=== PATIENT | male | born 1995 | race Caucasian/White ===

== ENCOUNTER 2020-08-14 11:36 | Emergency (ER) | payer MEDICAID, SELFPAY ==
[2020-08-14 12:22] VITALS: BP 114/71; PULSE 73; RESP 16; TEMP 37.1; O2SAT 100; BMI 28.1
--- NOTE | 2020-08-14 13:42 | ED.URI ---
HPI - URI/Sore Throat General Chief Complaint: Upper Respiratory Symptoms Stated Complaint: SORE THROAT Time Seen by Provider: 08/14/20 12:40 Source: patient Mode of arrival: ambulatory Limitations: no limitations History of Present Illness HPI Narrative: MD elicited complaint: sore throat and nasal congestion Onset (ago): day(s) (2) Consistency: constant Severity: moderate Able to tolerate fluids by mouth: Yes Exacerbating factors: swallowing Relieving factors: nothing Associated symptoms: denies other symptoms Treatments prior to arrival: none Related Data Home Medications Medication Instructions Recorded Confirmed No Known Home Meds 08/14/20 08/14/20 Allergies Allergy/AdvReac Type Severity Reaction Status Date / Time No Known Allergies Allergy Verified 08/14/20 12:31 [No Known Allergies*] Review of Systems Review of Systems: Yes all other systems are reviewed and are negative Constitutional: Constitutional: Reports as per HPI, Denies body ache(s), Denies chills, Denies fever(s) and Denies headache(s) Eyes: Eyes: Reports as per HPI ENT: Reports system reviewed and no additional complaints, except as documented, Denies halitosis, Denies change in voice, Denies ear discharge, Denies facial pain, Denies headache(s), Denies neck mass, Denies neck pain, Denies sinus pain, Denies sinus pressure and Denies throat swelling Cardiovascular: Cardiovascular: Reports as per HPI and Denies dyspnea Respiratory: Respiratory: Reports as per HPI, Denies cough and Denies dyspnea Gastrointestinal: Gastrointestinal: Reports as per HPI Genitourinary: Genitourinary: Reports as per HPI Musculoskeletal: Musculoskeletal: Reports as per HPI and Denies neck pain Integumentary/Breasts: Skin/Breast: Reports as per HPI Neurologic: Reports as per HPI and Denies headache(s) Psychiatric: Psychiatric: Reports as per HPI Endocrine: Endocrine: Reports as per HPI Hematologic/Lymphatic: Hematologic/Lymphatic: Reports as per HPI Allergic/Immunologic: Allergic/Immunologic: Reports as per HPI and Denies throat swelling PMFSH Past Medical History Medical History No known health problems No known health problems Social History Social History Alcohol intake: never Smoking Status: Never smoker Use of substances other than those prescribed or required for medical reasons: Yes Substance Use Type: Marijuana Substance Use Frequency: Daily Last Used Substance: Days (ago) Any prior treatment program specific to substance use: No Advance Directives: No Advance Directives Information Provided: No Physical Exam Vital Signs and I&O and Narrative: Vital Signs and I&O: Vital Signs Temp 98.7 F 08/14/20 12:22 Pulse 73 08/14/20 12:22 Resp 16 08/14/20 12:22 BP 114/71 08/14/20 12:22 Pulse Ox 100 08/14/20 12:22 Intake & Output 08/13/20 08/14/20 08/14/20 18:59 06:59 18:59 Weight 83.915 kg Body Mass Index 28.1 Const: General: cooperative, healthy appearing, comfortable, no acute distress, well developed, alert, awake and Physically active Nutritional Appearance: average body habitus Orientation/consciousness: patient oriented x3 Limitations: no limitations HENMT: Head: Yes normal to inspection Ears: hearing grossly normal bilaterally, external ears normal and TM's normal bilaterally General nose exam: Normal external nose present, Normal nares present, No nasal polyps present, Normal nasal mucous membranes and turbinates present, Normal septum present and No nasal discharge present Face and sinus: Yes normal facial exam, Yes sinuses nontender, Yes face symmetric and Yes normal transillumination of sinuses Mouth: Normal oral and palatal mucosa present, lip normal, tongue normal, Normal salivary glands and ducts present, oropharynx normal and moist mucous membranes Teeth and gingiva: dentition normal Throat: Yes posterior oropharynx normal, Yes uvula midline, Yes abnormal tonsil (excudate noted b/l ) and No peritonsillar mass Eyes: General: appearance normal, both eyes and all related structures Visual Joseph: normal visual joseph by confrontation Pupils: Equal, round and reactive pupils present EOM: EOMs intact bilaterally Neck: Neck: Yes normal visual inspection, Yes full ROM, Yes no lymphadenopathy, Yes no meningeal signs, Yes trachea midline and Yes supple Resp: Effort & Inspection: normal respiratory effort and able to speak in complete sentences Auscultation: clear to auscultation bilaterally Cardio: Rate: regular rate Rhythm: regular rhythm Heart sounds: S1 normal heart sound present and S2 normal heart sound present Peripheral pulses: Peripheral pulses 2+ throughout Back/Spine/Pelvis: Cervical Spine: cervical ROM normal Thoracic/Lumbar Spine: thoraco-lumbar ROM normal Skin: General skin exam: no rashes or lesions noted, elasticity normal and turgor normal Neuro: General: patient oriented x3 and no meningeal signs Cranial nerves: Yes Equal, round and reactive pupils present Extrem: General: Yes normal to inspection, Yes full ROM, Yes capillary refill normal, Yes normal exam except as noted and Yes normal gait MDM - URI/Sore Throat MDM Narrative Medical decision making narrative: COVID-19 VS STREP VS VIRAL SYNDROME Medical Records Attestation: I reviewed the patient's medical records. Lab Data Attestation: I reviewed the patient's lab results. Labs: COVID-19 AND Strep culture pending Discharge Plan Discharge Clinical Impression: Pharyngitis Patient Disposition: Home, Self-Care Instructions: Pharyngitis (ED), COVID-19 (Coronavirus Disease 2019) (ED) Prescriptions: No Action No Known Home Meds RF: 0
--- NOTE | 2020-08-14 15:01 | PC.NURSE ---
PT NOT TREATED PER SEPSIS PROTOCOL PER [facility] MANN
== END 2020-08-14 15:05 | disposition home or self-care (01) ==
PROVIDERS: Physician Assistant Medical; Emergency Provider Emergency Medicine; PCP Family Medicine
DX: J02.9 Acute pharyngitis, unspecified (principal); Z20.828 Contact with and (suspected) exposure to other viral communicable diseases
CPT/HCPCS: 36415; 87071; 87635; 99283; 99284

== ENCOUNTER 2021-01-30 08:55 | Emergency (ER) | payer MEDICAID, SELFPAY ==
[2021-01-30 09:06] VITALS: BP 125/69; PULSE 75; RESP 18; TEMP 36.8; O2SAT 100; BMI 64.3
--- NOTE | 2021-01-30 09:32 | ED.GENADULT ---
HPI - General Adult General Chief complaint: General Medical Stated complaint: JAW PAIN Time Seen by Provider: 01/30/21 09:32 History of Present Illness HPI narrative: Complains of left jaw pain with opening and closing his mouth, denies toothache denies difficulty breathing or swallowing, no injury no trauma Related Data Previous Rx's Medication Instructions Recorded amoxicillin-pot clavulanate 1 tab PO BID 7 Days #14 tab 08/14/20 [Augmentin] ibuprofen 800 mg PO Q8H PRN #14 tab 08/14/20 ibuprofen 600 mg PO Q6H PRN #20 tab 01/30/21 ibuprofen 600 mg PO Q6H PRN #20 tab 01/30/21 Allergies Allergy/AdvReac Type Severity Reaction Status Date / Time No Known Allergies Allergy Verified 08/14/20 12:31 [No Known Allergies*] Review of Systems Review of Systems: Positive for left jaw pain Negative no fever no chills no dizziness no weakness no toothache no sore throat no difficulty breathing or swallowing no rash no neck pain no numbness weakness or tingling PMFSH Past Medical History Source: nursing notes reviewed Medical History No known health problems No known health problems Social History Social History Alcohol intake: never Smoking Status: Never smoker Substance Use Type: Marijuana Advance Directives: No Advance Directives Information Provided: No Physical Exam Vital Signs: Vital Signs: Last Vital Signs Temp 98.2 F 01/30/21 09:06 Pulse 75 01/30/21 09:06 Resp 18 01/30/21 09:06 BP 125/69 01/30/21 09:06 Pulse Ox 100 01/30/21 09:06 Body Mass Index 64.3 General appearance is no distress exam the skin of the face is normal there is no redness or warmth there are no wounds When he opens and closes mouth there is tenderness over the left TMJ which is not swollen The oral exam the pharynx is normal he is well-hydrated the teeth there is no obvious abscess on the gums there is no tenderness to any tooth when tapped there is no trismus no tenderness under the tongue, voice is normal The neck is supple Respiratory no distress Extremities full range of motion x4 Skin no rashes Neuro no focal deficits Course Course Course Narrative: Patient is treated with ibuprofen anti-inflammatory for mild TMJ, no sign of any intraoral or dental infection, no trauma Discharge Plan Discharge Clinical Impression: TMJ (temporomandibular joint disorder) Patient Disposition: Home, Self-Care Additional Instructions: TMJ is an inflammation of the joint in the jaw and will usually get get better on its own Anti-inflammatories and warm compresses sometimes help Follow with dentist to make sure we are not missing underlying dental infection Return any concerns Prescriptions: New ibuprofen 600 mg tablet 600 mg PO Q6H PRN (Reason: pain) Qty: 20 RF: 0 ibuprofen 600 mg tablet 600 mg PO Q6H PRN (Reason: pain) Qty: 20 RF: 0 No Action amoxicillin-pot clavulanate [Augmentin] 875-125 mg tablet 1 tab PO BID 7 Days Qty: 14 RF: 0 ibuprofen 800 mg tablet 800 mg PO Q8H PRN (Reason: pain) Qty: 14 RF: 0 Interventions: ED Discharge Assessment Last Done: 01/30/21 09:42 Discharge Date/Time: 01/30/21 09:44
== END 2021-01-30 09:44 | disposition home or self-care (01) ==
PROVIDERS: Emergency Provider Emergency Medicine
DX: M26.602 Left temporomandibular joint disorder, unspecified (principal); R68.84 Jaw pain; Z79.899 Other long term (current) drug therapy
CPT/HCPCS: 99283

== ENCOUNTER 2022-04-28 00:32 | Emergency (ER) | payer MEDICAID, SELFPAY ==
--- NOTE | 2022-04-28 | ECG_ITS ---
Test Reason : CHEST PAIN Blood Pressure : / mmHG Vent. Rate : 070 BPM Atrial Rate : 070 BPM P-R Int : 170 ms QRS Dur : 088 ms QT Int : 360 ms P-R-T Axes : 058 047 030 degrees QTc Int : 388 ms Normal sinus rhythm with sinus arrhythmia Normal ECG When compared with ECG of 24-APR-2017 09:10, No significant change was found Referred By: Gurinder Marin Electronically Signed By:Geovanny River
[2022-04-28 00:35] VITALS: BP 143/86; PULSE 83; RESP 11; TEMP 36.4; O2SAT 99; BMI 29.5
--- NOTE | 2022-04-28 00:38 | ED_ITS ---
HPI - Chest Pain General Chief Complaint: Chest Pain Stated Complaint: cp Time Seen by Provider: 04/28/22 00:37 Source: patient Mode of arrival: ambulatory Limitations: no limitations History of Present Illness HPI narrative: Patient no significant past medical history noticed sudden onset of mid chest pain about 2 hours ago lasted for few minutes was sharp in character felt some numbness in the left arm also no shortness of breath no diaphoresis no nausea or vomiting patient never had similar pain in the past Related Data Previous Rx's Medication Instructions Recorded amoxicillin 875 mg-potassium 1 tab PO BID pharyngitis 7 days 08/14/20 clavulanate 125 mg tablet #14 tabs (Augmentin) ibuprofen 800 mg tablet 800 mg PO Q8H PRN pain #14 tabs 08/14/20 ibuprofen 600 mg tablet 600 mg PO Q6H PRN pain #20 tabs 01/30/21 ibuprofen 600 mg tablet 600 mg PO Q6H PRN pain #20 tabs 01/30/21 Allergies Allergy/AdvReac Type Severity Reaction Status Date / Time No Known Allergies Allergy Verified 08/14/20 12:31 [No Known Allergies*] REPLACED BY [facility] Past Medical History Medical History No known health problems No known health problems Social History Social History Alcohol intake: never Substance Use Type: Marijuana Physical Exam Vital Signs: Vital Signs: Last Vital Signs Temp 98.3 F 04/28/22 00:50 Pulse 70 04/28/22 00:50 Resp 16 04/28/22 00:50 BP 143/80 H 04/28/22 00:50 Pulse Ox 99 04/28/22 00:50 O2 Del Method 04/28/22 00:50 BMI result Body Mass Index 29.5 MDM - Chest Pain MDM Narrative Medical decision making narrative: Patient atypical chest pain lasted for few minutes normal EKG normal high sensitive troponin heart score 0 discharge patient home advised to follow with PCP Lab Data Attestation: I reviewed the patient's lab results. Result diagrams: 04/28/22 00:46 04/28/22 00:46 Labs: Lab Results 04/28/22 04/28/22 04/28/22 Range/Units 00:46 00:46 00:46 WBC 8.8 (4.8-10.8) X10*3/uL RBC 4.79 (4.60-5.80) X10*6/uL Hgb 14.3 (14.0-18.0) g/dl Hct 41.8 L (42.0-52.0) % MCV 87.3 (80.0-98.0) fL MCH 29.9 (27.0-33.0) pg MCHC 34.2 (31.0-36.0) g/dl RDW 12.5 (11.0-16.0) % Plt Count 314 (160-400) X10*3/uL MPV 9.6 (9.4-12.4) fL Immature Gran % (Auto) 0.3 (0.0-0.4) % Neut % (Auto) 55.2 (45-73) % Lymph % (Auto) 31.0 (20-40) % [place]oux % (Auto) 7.1 (2-11) % Eos % (Auto) 5.5 H (0-4) % Baso % (Auto) 0.9 (0-2) % Lymph # (Auto) 2.7 (1.2-4.9) X10*3/uL [place] # (Auto) 0.6 (0.1-1.2) X10*3/uL Eos # (Auto) 0.5 H (0.0-0.4) X10*3/uL Baso # (Auto) 0.1 (0.0-0.2) X10*3/uL Abs Immat Gran (auto) 0.03 (0.00-0.03) X10*3/uL Absolute Neuts (auto) 4.9 (2.0-8.3) x10*3/uL Absolute Nucleated RBC 0.000 (0.0-0.012) X10*3/uL Nucleated RBC % (auto) 0.0 (0.0-0.2) /100WBC Sodium 141 (135-145) mmol/L Potassium 4.5 (3.3-5.1) mmol/L Chloride 105 (96-108) mmol/L Carbon Dioxide 29 (22-29) mmol/L Anion Gap 12 (12-20) BUN 11 (9-16) mg/dL Creatinine 0.93 (0.5-1.4) mg/dL Estim Creat Clear Calc 131.6 Estimated GFR > 60 Random Glucose 98 (60-115) mg/dL Calcium 9.8 (8.4-10.2) mg/dL Total Bilirubin 0.6 (0.0-1.0) mg/dL AST 18 (5-37) U/L ALT 26 (0-40) U/L Alkaline Phosphatase 62 (39-117) U/L Troponin I High Sens < 3.5 (<3.5-35.0) ng/L Total Protein 7.4 (6.5-8.0) g/dL Albumin 4.8 (3.5-5.0) g/dL ECG Data ECG #1: Attestation: I personally reviewed and interpreted this ECG as follows: Interpretation: Normal sinus rhythm heart rate 70 beats per minute normal interval normal axis no acute ST wave changes no acute ischemia Scores Heart Score History: -0- slightly suspicious ECG: -0- normal Age: -0- < or = 45 Risk factory: -0- no risk factors known Troponin: -0- < or = normal limit Score: 0 Risk: 1.7% Discharge Plan Discharge Clinical Impression: Chest pain Patient Disposition: Home, Self-Care Instructions: Chest Pain (ED) Additional Instructions: Your chest pain is likely not from the heart follow with PCP if any concern for further workup Prescriptions: No Action amoxicillin-pot clavulanate [Augmentin] 875-125 mg tablet 1 tab PO BID 7 Days Qty: 14 0RF ibuprofen 800 mg tablet 800 mg PO Q8H PRN (Reason: pain) Qty: 14 0RF ibuprofen 600 mg tablet 600 mg PO Q6H PRN (Reason: pain) Qty: 20 0RF ibuprofen 600 mg tablet 600 mg PO Q6H PRN (Reason: pain) Qty: 20 0RF
[2022-04-28 00:50] VITALS: BP 143/80; PULSE 70; RESP 16; TEMP 36.8; O2SAT 99
[2022-04-28 00:51] LABS: MANUAL DIFF FLAG NO
[2022-04-28 00:52] LABS: Basophils Absolute Auto 0.1 X10*3/uL (0.0-0.2); Basophils Percent Auto 0.9 % (0-2); Eosinophils Absolute Auto 0.5 X10*3/uL (0.0-0.4); Eosinophils Percent Auto 5.5 % (0-4); Hematocrit 41.8 % (42.0-52.0); Hemoglobin 14.3 g/dl (14.0-18.0); Imm Gran Abs Auto 0.03 X10*3/uL (0.00-0.03); Imm Gran Pct Auto 0.3 % (0.0-0.4); Lymphocytes Absolute Auto 2.7 X10*3/uL (1.2-4.9); Mean Corpuscular HGB Conc 34.2 g/dl (31.0-36.0); Mean Corpuscular Hemoglobin 29.9 pg (27.0-33.0); Mean Corpuscular Volume 87.3 fL (80.0-98.0); Mean Platelet Volume 9.6 fL (9.4-12.4); Monocytes Absolute Auto 0.6 X10*3/uL (0.1-1.2); Monocytes Percent Auto 7.1 % (2-11); Neutrophils Absolute Auto 4.9 x10*3/uL (2.0-8.3); Neutrophils Percent Auto 55.2 % (45-73); Platelet Count 314 X10*3/uL (160-400); Red Blood Count 4.79 X10*6/uL (4.60-5.80); Red Cell Distribution Width 12.5 % (11.0-16.0); White Blood Count 8.8 X10*3/uL (4.8-10.8)
[2022-04-28 01:07] LABS: Alanine Aminotransferase 26 U/L (0-40); Albumin Level 4.8 g/dL (3.5-5.0); Alkaline Phosphatase 62 U/L (39-117); Anion Gap 12 (12-20); Aspartate Amino Transferase 18 U/L (5-37); Bilirubin Total 0.6 mg/dL (0.0-1.0); Blood Urea Nitrogen 11 mg/dL (9-16); Calcium 9.8 mg/dL (8.4-10.2); Carbon Dioxide 29 mmol/L (22-29); Chloride 105 mmol/L (96-108); Creatinine Clr Calc Pharmacy 131.6; Estimated Glomerular Filt Rate > 60; Glucose Random 98 mg/dL (60-115); Potassium 4.5 mmol/L (3.3-5.1); Sodium 141 mmol/L (135-145); Total Protein 7.4 g/dL (6.5-8.0)
[2022-04-28] MEDS: Aspirin Enteric Coated 81 MG TABLET.DR 162 MG PO (01:11)
[2022-04-28 01:13] LABS: Troponin-I High Sensitivity < 3.5 ng/L (<3.5-35.0)
== END 2022-04-28 02:00 | disposition home or self-care (01) ==
PROVIDERS: Emergency Provider Internal Medicine
DX: R07.9 Chest pain, unspecified (principal)
CPT/HCPCS: 36415; 80053; 84484; 85025; 93005; 99283; 99285

== ENCOUNTER 2022-09-20 16:27 | Outpatient (REF) | payer MEDICAID, SELFPAY ==
--- NOTE | ~2022-09-20 | US_ITS ---
EXAMINATION: US SCROTUM CLINICAL INFORMATION: Scrotal pain. COMPARISON: None TECHNIQUE: A sonogram of the scrotum was performed assessing rincon-scale appearance and color Doppler flow. Spectral Doppler analysis of the arterial and venous flow were performed in the testes bilaterally. FINDINGS: RIGHT: Right testicle measures 4.7 x 2.5 x 2.9 cm, volume 17.7 mL. No focal testicular parenchymal lesions are visualized. Spectral Doppler analysis of the arterial and venous flow is normal in the right testis. Right epididymal head is normal in size. No right varicocele is seen. Small to moderate right hydrocele. Appendix testis or epididymis. Right epididymal Doppler flow is normal. LEFT: Left testicle measures 4.6 x 2.6 x 3.4 cm, volume 20.8 mL. No focal testicular parenchymal lesions are visualized. Spectral Doppler analysis of the arterial and venous flow is normal in the left testis. Left epididymal head is normal in size. No left varicocele is seen. Small to moderate left hydrocele present. The appendix testis or epididymis. Left epididymal Doppler flow is normal. US/US scrotum IMPRESSION: Small to moderate right and small left hydroceles.
== END 2022-09-20 16:28 | disposition home or self-care (01) ==
LOC: HO.US 16:27
PROVIDERS: PCP Registered Nurse; Visit Provider Registered Nurse
DX: N50.82 Scrotal pain (principal)
CPT/HCPCS: 76870

== ENCOUNTER 2023-01-13 11:00 | Outpatient (RCR) | payer MEDICAID, SELFPAY ==
--- NOTE | 2022-12-15 13:59 | MHC.PT.EP ---
[facility] [place] Office [place] Office [place] Office [address] Carmela Reilly [address] [phone] F: [phone] F: [phone] F: [phone] F: [phone] Physical Therapy Plan of Care Date of Evaluation: Date of Surgery: N/A Diagnosis: dorsalgia, unspecified other chronic back pain Assessment: Pt is a pleasant and motivated 27yo M who presents to PT with low back pain for a couple weeks. Pt presents to PT with current impairments in pain, decreased lumbar ROM, decreased muscle length, decreased core stabilization, decreased hip/glute strength, and impaired gait. He is limited functionally by bending, twisting, sleeping, prolonged standing and sitting. He is an excellent candidate for skilled PT in order to address current impairments to facilitate return to PLOF. He is recommended to be seen 2x/week for 3 weeks and will be reassessed at that time. Frequency and Duration: The patient will be seen 2x/week for 3 weeks Short Term Goals: Pt will be I with HEP to promote self management of symptoms Pt will demonstrate improvements in postural awareness throughout the day Usp Goals: Pt will demonstrate full, pain-free ROM all planes of lumbar spine Pt will demonstrate ability to squat and pick object up from floor with proper mechanics and minimal to no pain Pt will demonstrate improvements in function as evidenced by statistically significant improvement in Modified Oswestry Low Back Pain Disability Questionnaire Treatment Plan: Modalities to reduce pain, spasms and effusion. Manual therapy to restore motion and function. Therapeutic exercise to improve strength and flexibility. Neuromuscular re-education for posture and balance. Therapeutic activities to return to functional activities of daily living. Electronically signed by: Renetta Bundy, PT, DPT Please sign and return to therapist. Thank you for your referral.
--- NOTE | 2023-03-01 14:25 | MHC.PT.DC ---
[facility] [place] Office [place] Office [place] Office [address] Carmela Reilly [address] [phone] F: [phone] F: [phone] F: [phone] F: [phone] Physical Therapy Discharge Report Diagnosis: dorsalgia, unspecified other chronic back pain Date of Surgery: N/A Date of Evaluation: 12/15/22 Date of Discharge: 03/01/23 Treatments to Date: 6 Cancellations to Date: 2 No Shows to Date: Discharge Status: Improved Function Discharge Summary: Pt was seen for PT from 12/15/22-01/13/23. He attended 6 PT sessions and made good progress throughout PT with decreased pain reported. Pt is being D/C from skilled PT as he has not attended or called to schedule in > 30 days. Pt current level of function unknown at this time. Electronically signed by: Renetta Bundy, PT, DPT Please sign and return to therapist. Thank you for your referral.
== END 2023-03-01 14:25 | disposition home or self-care (01) ==
LOC: HO.PT 11:00
PROVIDERS: PCP Registered Nurse; Visit Provider Registered Nurse
DX: M54.9 Dorsalgia, unspecified (principal)
CPT/HCPCS: 97110; 97140; 97161; 97530

== ENCOUNTER 2023-05-05 14:42 | Outpatient (REF) | payer MEDICAID, SELFPAY ==
--- NOTE | ~2023-05-05 | MM_ITS ---
EXAMINATION: MM DIAGNOSTIC DIGITAL BREAST TOMOSYNTHESIS, BILATERAL US TARGETED BREAST, LEFT CLINICAL INFORMATION: Left breast lump 3 o'clock position which patient says he has felt for years. COMPARISON: Mammography: None. TECHNIQUE: Digital breast tomosynthesis is performed in both the craniocaudal and mediolateral oblique views along with computer-aided detection (CAD). Synthesized 2-D images are generated from the tomosynthesis. Targeted left breast ultrasound. FINDINGS: The breasts are almost entirely fatty (ACR BI-RADS breast composition Category a). There are no significant masses, abnormal calcifications, or other abnormalities. Targeted ultrasound of the left breast in the region of palpable abnormality approximately 3 o'clock position demonstrates a circumscribed mildly hyperechoic structure with no evidence of distal sound shadowing. There appears to be some mild increased through sound transmission. There is one small focus of vascularity noted. The lesion is wider than it is tall. It measures approximately 2.2 x 3.0 x 0.8 cm in size. Results are discussed with the patient at time of visit. MM/MM tomosynthesis diagnostic BI IMPRESSION: Ultrasound findings consistent with lipoma. ASSESSMENT: BI-RADS 2: Benign. RECOMMENDATION: Patient should be managed based on the clinical impression. Decision to proceed with biopsy should be based on clinical grounds and degree of clinical concern.
== END 2023-05-05 14:43 | disposition home or self-care (01) ==
LOC: HO.MAMMO 14:42
PROVIDERS: Visit Provider Registered Nurse
DX: N63.25 Unspecified lump in the left breast, overlapping quadrants (principal)
CPT/HCPCS: 76642; 77062; 77066

== ENCOUNTER 2023-10-04 14:45 | Outpatient (REF) | payer MEDICAID, SELFPAY ==
--- NOTE | ~2023-10-04 | XR_ITS ---
EXAMINATION: XR KNEE, RIGHT CLINICAL INFORMATION: Right knee pain COMPARISON: Right knee radiograph from 02/14/2006 (report only) TECHNIQUE: Four views of the right knee. FINDINGS: No acute visible fracture or dislocation. Ossific focus along the superior margin of the tibial eminence suggesting possible sequela of [place]-Schlatter's disease. Joint space alignment are maintained. No large knee joint effusion. Soft tissues are unremarkable. XR/XR knee RT 4V IMPRESSION: 1. No acute visible fracture or dislocation. 2. Ossific focus along the superior margin of the tibial eminence suggesting possible sequela of [place]-Schlatter's disease.
== END 2023-10-04 14:46 | disposition home or self-care (01) ==
LOC: HO.HHCX 14:45
PROVIDERS: Visit Provider Registered Nurse
DX: M23.91 Unspecified internal derangement of right knee (principal)
CPT/HCPCS: 73564

== ENCOUNTER 2023-11-08 10:31 | Outpatient (REF) | payer MEDICAID, SELFPAY ==
[2023-11-08 12:28] LABS: Cholesterol 136 mg/dL (<200); HDL Cholesterol 42 mg/dL (>40); LDL Cholesterol Calculated 82 mg/dL (<100); Triglycerides 62 mg/dL (<150)
[2023-11-08 12:39] LABS: HBS Num1 1.38 mIU/mL (0-7.99); HBc Num1 0.19 S/CO (0.00-0.79); HBsAGNum1 0.48 S/CO (0.00-0.99); HIV AB/AG Nonreactive (Nonreactive); HIV Num 1 0.15 S/CO (0.00-0.99); Hepatitis A Antibody IgM 0.15 Index (0-0.79); Hepatitis B Core Antibody Nonreactive (Nonreactive); Hepatitis B Surface Antigen Negative (Negative); Syphilis Screen Nonreactive (Nonreactive); ~HepC Num1 0.21 S/CO (0.00-0.79); ~Hepatitis A Antibody IgM Nonreactive (Nonreactive); ~Hepatitis B Surface Antibody NONREACTIVE (Nonreactive); ~Hepatitis C Antibody Nonreactive (Nonreactive)
[2023-11-08 13:59] LABS: CT PCR NOT DETECTED (Not Detect.); NG PCR NOT DETECTED (Not Detect.)
== END 2023-11-08 10:32 | disposition home or self-care (01) ==
LOC: HO.HHCL 10:31
PROVIDERS: Referring Provider Registered Nurse; Visit Provider Internal Medicine
DX: Z00.00 Encounter for general adult medical examination without abnormal findings (principal); N48.9 Disorder of penis, unspecified; Z11.3 Encounter for screening for infections with a predominantly sexual mode of transmission; Z13.220 Encounter for screening for lipoid disorders; Z11.59 Encounter for screening for other viral diseases
CPT/HCPCS: 0353U; 36415; 80061; 86704; 86706; 86709; 86780; 86803; 87340; 87389

== ENCOUNTER 2024-05-18 23:41 | Emergency (ER) | payer MEDICAID, SELFPAY ==
--- NOTE | ~2024-05-18 | CT_ITS ---
EXAMINATION: CT ABDOMEN AND PELVIS WITH CONTRAST CLINICAL INFORMATION: Right lower quadrant pain and tenderness COMPARISON: None available. TECHNIQUE: Multidetector volumetric images were obtained from the superior aspect of the liver through the pubic symphysis following administration 100 mL of Omnipaque 350 intravenous contrast. Sagittal and coronal reformatted images were obtained on the technologist's workstation. Oral contrast: No This CT examination was performed using dose optimization techniques as appropriate, variously including the following: *Automated exposure control *Adjustment of mA and/or kV according to patient size (this includes techniques or standardized protocols for targeted exams where dose is matched to indication/reason for exam; i.e. extremities or head) *Use of iterative reconstruction technique DLP: 660 mGy-cm FINDINGS: LUNG BASES: The visualized lung bases are unremarkable. LIVER, GALLBLADDER, AND BILIARY TREE: The liver is normal in size, shape, and attenuation. No focal hepatic lesion or biliary ductal dilatation is present. The gallbladder is unremarkable with no evidence of radiopaque gallstones, gallbladder wall thickening, or obvious pericholecystic inflammatory changes. PANCREAS: Unremarkable. SPLEEN: Unremarkable. ADRENAL GLANDS: Unremarkable. KIDNEYS AND URETERS: A single 2 mm x 2 mm calculus is present in the interpolar segment of the right kidney, possibly within the renal pelvis or distal calyx or possibly within a foraminal region. No hydronephrosis or perinephric inflammatory changes identified. No ureterectasis. Incidental note made of pelvic phleboliths. BLADDER: Normal. GASTROINTESTINAL TRACT: The appendix is normal in appearance measuring 4 mm diameter. No periappendiceal inflammatory changes visualized. No intestinal dilatation or free intraperitoneal fluid collections noted. Normal appearance of the sigmoid mesentery and small bowel mesentery. Normal appearance of the stomach and duodenum. ABDOMINAL WALL: No significant hernia is appreciated. LYMPH NODES: Normal. VASCULAR: Unremarkable. PELVIC VISCERA: Unremarkable. OSSEOUS STRUCTURES: Unremarkable. CT/CT abdomen pelvis w IV con IMPRESSION: *No acute abnormalities identified. *Normal appearance of the appendix. *Single 2 mm nonobstructing right renal calculus. No evidence of acute obstructing uropathy.
--- NOTE | 2024-05-19 | ECG_ITS ---
Test Reason : DIZZINESS Blood Pressure : / mmHG Vent. Rate : 083 BPM Atrial Rate : 083 BPM P-R Int : 156 ms QRS Dur : 078 ms QT Int : 346 ms P-R-T Axes : 045 037 021 degrees QTc Int : 406 ms Normal sinus rhythm Normal ECG When compared with ECG of 28-APR-2022 00:34, Non-specific change in ST segment in Anterior leads Referred By: Generic ED Physician Electronically Signed By:JOSE REYES
[2024-05-19 00:17] VITALS: BP 115/81; BP 120/92; PULSE 105; PULSE 87; RESP 18; TEMP 37.3; O2SAT 99; BMI 27.3
[2024-05-19 01:45] LABS: Basophils Absolute Auto 0.1 X10*3/uL (0.0-0.2); Basophils Percent Auto 0.4 % (0-2); Eosinophils Percent Auto 0.2 % (0-4); Hematocrit 43.7 % (42.0-52.0); Hemoglobin 15.9 g/dl (14.0-18.0); Imm Gran Abs Auto 0.04 X10*3/uL (0.00-0.03); Imm Gran Pct Auto 0.3 % (0.0-0.4); Lymphocytes Absolute Auto 0.6 X10*3/uL (1.2-4.9); Lymphocytes Percent Auto 4.1 % (20-40); MANUAL DIFF FLAG SCAN; Mean Corpuscular HGB Conc 36.4 g/dl (31.0-36.0); Mean Corpuscular Hemoglobin 30.5 pg (27.0-33.0); Mean Corpuscular Volume 83.9 fL (80.0-98.0); Mean Platelet Volume 9.7 fL (9.4-12.4); Monocytes Absolute Auto 0.5 X10*3/uL (0.1-1.2); Monocytes Percent Auto 3.9 % (2-11); Neutrophils Absolute Auto 12.5 x10*3/uL (2.0-8.3); Neutrophils Percent Auto 91.1 % (45-73); Platelet Count 319 X10*3/uL (160-400); Red Blood Count 5.21 X10*6/uL (4.60-5.80); Red Cell Distribution Width 11.9 % (11.0-16.0); SCAN SMEAR FLAG 1; White Blood Count 13.7 X10*3/uL (4.8-10.8)
[2024-05-19 02:02] LABS: Alanine Aminotransferase 17 U/L (0-40); Albumin Level 4.7 g/dL (3.5-5.0); Alkaline Phosphatase 57 U/L (39-117); Anion Gap 15 (12-20); Aspartate Amino Transferase 13 U/L (5-37); Bilirubin Direct 0.5 mg/dL (0.0-0.5); Bilirubin Total 1.5 mg/dL (0.0-1.0); Blood Urea Nitrogen 10 mg/dL (9-16); Calcium 9.9 mg/dL (8.4-10.2); Carbon Dioxide 23 mmol/L (22-29); Chloride 107 mmol/L (96-108); Creatinine Clr Calc Pharmacy 112.6; Estimated Glomerular Filt Rate > 60; Glucose Random 91 mg/dL (60-115); Lipase 21 U/L (8-78); Potassium 4.1 mmol/L (3.3-5.1); Sodium 141 mmol/L (135-145); Total Protein 7.4 g/dL (6.5-8.0)
[2024-05-19 02:08] LABS: SLIDE REVIEW VERIFIED; Troponin-I High Sensitivity < 2.7 ng/L (<3.5-35.0)
--- NOTE | 2024-05-19 02:15 | ED.GENADULT ---
HPI - General Adult General Chief complaint: Dizziness Stated complaint: ABDOMINAL PAIN, WEAKNESS, DIARRHEA, DIZZINESS Time Seen by Provider: 05/19/24 02:15 History of Present Illness ED Provider: Grant VARGAS narrative: The patient is a 28-year-old male who says that he is felt unwell all day. He is very vague about his symptoms. He says ?I think I ate something that disagreed with me. ? He has had nausea but no vomiting. He had several loose stools today. At 1 point he felt diaphoretic, dizzy, and would tingling in his extremities but these symptoms resolved. [place] better once he got in the cool of the emergency room but he continues to have a sense of abdominal discomfort and right lower quadrant discomfort in particular. Related Data Previous Rx's ?Medication ?Instructions ?Recorded amoxicillin 875 mg-potassium 1 tab PO BID pharyngitis 7 days 08/14/20 clavulanate 125 mg tablet #14 tabs (Augmentin) ibuprofen 800 mg tablet 800 mg PO Q8H PRN pain #14 tabs 08/14/20 ibuprofen 600 mg tablet 600 mg PO Q6H PRN pain #20 tabs 01/30/21 ibuprofen 600 mg tablet 600 mg PO Q6H PRN pain #20 tabs 01/30/21 Allergies Allergy/AdvReac Type Severity Reaction Status Date / Time No Known Allergies Allergy Verified 05/19/24 00:21 [No Known Allergies*] Review of Systems Review of Systems: Yes all other systems are reviewed and are negative PMFSH Past Medical History Medical History No known health problems No known health problems Social History Social History (System 10/17/23 @ 07:42 by Surekha Basurto) Alcohol intake: never Smoked in Last 30 Days: No Use of substances other than those prescribed or required for medical reasons: No Substance Use Type: Marijuana Advance Directives: No Advance Directives Information Provided: No Do you have a plan to hurt others: No Plan Physical Exam ED Vital Signs: Vital Signs - 24 hr 05/19/24 00:17 05/19/24 05:54 05/19/24 05:55 Temperature 99.2 F 98.3 F 98.3 F Pulse Rate 87 79 79 Respiratory Rate 18 17 17 Blood Pressure 115/81 109/79 109/79 Pulse Oximetry 99 99 99 Oxygen Delivery Method Room Air Room Air Room Air BMI result Body Mass Index 27.3 Const Other: The patient is awake and alert. He looks fatigued but not obviously acutely ill. HENMT Other: Face is symmetrical, mucous membranes moist. Eyes Other: Pupils are round equal, conjunctivae are clear Neck Other: Moving his neck easily Resp Effort & Inspection: normal respiratory effort Auscultation: clear to auscultation bilaterally Cardio Rate: regular rate Rhythm: regular rhythm Heart sounds: S1 normal heart sound present and S2 normal heart sound present GI Other: The patient's abdomen is soft. There is right lower quadrant tenderness. Skin Other: Skin is dry and unremarkable Neuro Other: The patient is awake and alert. Cranial nerves are grossly intact. He moves his extremities normally. He seems to be grossly neurologically intact. Extrem Other: No peripheral edema Medications Administered Discontinued Medications Generic Name Dose Route Start Last Admin Trade Name Freq PRN Reason Stop Dose Admin Sodium Chloride 1,000 mls @ 999 mls/hr 05/19/24 02:30 05/19/24 05:53 Ns IV 05/19/24 03:30 Infused .Q1H1M MARCOS Infusion Iohexol 85 ml 05/19/24 02:57 05/19/24 02:57 Iohexol 350 Mg/Ml 100 Ml Infus..Btl IV 05/19/24 02:58 85 ml ONCE ONE Administration Ondansetron HCl 4 mg 05/19/24 02:23 05/19/24 02:36 Ondansetron Hcl 4 Mg/2 Ml Vial IVPUSH 05/19/24 02:24 4 mg ONCE ONE Administration Medical Decision Making Medical Decision Making [facility] Narrative: The patient is a 28-year-old male who presents with abdominal pain. He had apparently also had an episode of feeling quite unwell when he was diaphoretic and dizzy. These symptoms Seemed to resolve when he got into the cool of the emergency room. The abdominal discomfort persisted. He had right lower quadrant tenderness. The CT of the abdomen and pelvis was done. The patient was given IV fluids and ondansetron. The CT of his abdomen and pelvis was negative. He was reassured and discharged. Lab Data 05/19/24 01:41 05/19/24 01:41 Labs: Lab Results 05/19/24 Range/Units 01:41 WBC 13.7 H (4.8-10.8) X10*3/uL RBC 5.21 (4.60-5.80) X10*6/uL Hgb 15.9 (14.0-18.0) g/dl Hct 43.7 (42.0-52.0) % MCV 83.9 (80.0-98.0) fL MCH 30.5 (27.0-33.0) pg MCHC 36.4 H (31.0-36.0) g/dl RDW 11.9 (11.0-16.0) % Plt Count 319 (160-400) X10*3/uL MPV 9.7 (9.4-12.4) fL Immature Gran % (Auto) 0.3 (0.0-0.4) % Neut % (Auto) 91.1 H (45-73) % Lymph % (Auto) 4.1 L (20-40) % Cloud % (Auto) 3.9 (2-11) % Eos % (Auto) 0.2 (0-4) % Baso % (Auto) 0.4 (0-2) % Lymph # (Auto) 0.6 L (1.2-4.9) X10*3/uL Cloud # (Auto) 0.5 (0.1-1.2) X10*3/uL Eos # (Auto) 0.0 (0.0-0.4) X10*3/uL Baso # (Auto) 0.1 (0.0-0.2) X10*3/uL Abs Immat Gran (auto) 0.04 H (0.00-0.03) X10*3/uL Absolute Neuts (auto) 12.5 H (2.0-8.3) x10*3/uL Absolute Nucleated RBC 0.000 (0.0-0.012) X10*3/uL Nucleated RBC % (auto) 0.0 (0.0-0.2) /100WBC Smear Tech's Comments VERIFIED Sodium 141 (135-145) mmol/L Potassium 4.1 (3.3-5.1) mmol/L Chloride 107 (96-108) mmol/L Carbon Dioxide 23 (22-29) mmol/L Anion Gap 15 (12-20) BUN 10 (9-16) mg/dL Creatinine 0.99 (0.5-1.4) mg/dL Estim Creat Clear Calc 112.6 Estimated GFR > 60 Random Glucose 91 (60-115) mg/dL Calcium 9.9 (8.4-10.2) mg/dL Total Bilirubin 1.5 H (0.0-1.0) mg/dL Direct Bilirubin 0.5 (0.0-0.5) mg/dL AST 13 (5-37) U/L ALT 17 (0-40) U/L Alkaline Phosphatase 57 (39-117) U/L Troponin I High Sens < 2.7 (<3.5-35.0) ng/L C-Reactive Protein 1.90 H (< or = 0.50) mg/dL Total Protein 7.4 (6.5-8.0) g/dL Albumin 4.7 (3.5-5.0) g/dL Lipase 21 (8-78) U/L Discharge Plan Discharge Clinical Impression: Abdominal pain, Nausea, Diarrhea, Right kidney stone Patient Disposition: Home, Self-Care Instructions: Kidney Stones (ED) Additional Instructions: Your testing today does not show any acutely dangerous process. Please rest and take it easy today. Take clear fluids and simple foods like toast or rice. Please plan on following up with your regular doctor's office. The CT scan shows that you have a small kidney stone with a in your right kidney. This kidney stone is not causing any symptoms at the moment. However this proves that your body has some tendency to make kidney stones. You should increase your water intake every day. Try to increase your water intake by 2 or 3 glasses of water every day. Return to the emergency room if you feel significantly worse. Prescriptions: No Action amoxicillin-pot clavulanate [Augmentin] 875-125 mg tablet 1 tab PO BID 7 Days Qty: 14 0RF ibuprofen 800 mg tablet 800 mg PO Q8H PRN (Reason: pain) Qty: 14 0RF ibuprofen 600 mg tablet 600 mg PO Q6H PRN (Reason: pain) Qty: 20 0RF ibuprofen 600 mg tablet 600 mg PO Q6H PRN (Reason: pain) Qty: 20 0RF Referrals: [facility] [Primary Care Provider] - (Abdominal pain, diarrhea) Interventions: ED Discharge Assessment Last Done: 05/19/24 05:55 Discharge Date/Time: 05/19/24 05:55 Print Language: Gabonese
[2024-05-19] MEDS: 0.9 % Sodium Chloride 1,000 ML 999 ML IV (02:36)
[2024-05-19] MEDS: ondansetron HCL 4 MG/2 ML VIAL IVPUSH (02:36)
[2024-05-19] MEDS: iohexoL 350 MG/ML 100 ML INFUS..BTL 85 ML IV (02:57)
--- NOTE | 2024-05-19 03:14 | PC.NURSE ---
pt biba from home reporting onset of dizziness and sweating x1 day. pt reports he put ice packs on his skin with no relief. pt denies n/v/d. 20G placed in left ac, pt medicated per jan.
[2024-05-19 05:54] VITALS: BP 109/79; PULSE 79; RESP 17; TEMP 36.8; O2SAT 99
[2024-05-19 05:55] VITALS: BP 109/79; PULSE 79; RESP 17; TEMP 36.8; O2SAT 99
== END 2024-05-19 05:55 | disposition home or self-care (01) ==
PROVIDERS: Emergency Provider Emergency Medicine
DX: R10.31 Right lower quadrant pain (principal); R11.0 Nausea; R19.7 Diarrhea, unspecified; N20.0 Calculus of kidney
CPT/HCPCS: 36415; 74177; 80048; 82248; 83690; 84484; 85025; 86140; 93005; 96361; 96374; 99284; 99285; J2405; Q9967

== ENCOUNTER → 2024-05-19 01:33 | Outpatient (BNV) | payer MEDICAID, SELFPAY | PROVIDERS: Emergency Provider Emergency Medicine; Visit Provider Internal Medicine | DX: R42 Dizziness and giddiness (principal) | CPT/HCPCS: 93010 ==

== ENCOUNTER 2024-09-23 08:34 | Outpatient (AMB) | payer MEDICAID, SELFPAY ==
--- NOTE | 2024-09-22 20:24 | A.OFFVIS_ITS ---
Intake Visit Reasons: ED Intake Note: Patient is present for ED Urology Medication:NONE Antibiotic Allergy:NONE Blood Thinner:NONE Local Company Truck Driver Required: No Allergies No Known Allergies [No Known Allergies*] Allergy (Verified 09/23/24 09:07) HPI Comments Details: Alvarez is a 29 year old [employer] for evaluation -ED. He complains of ocassional scrotal pain. Reviewed CT 05/19/24-- small right renal stone He denies any urinary symptoms. Discussed will check labs, testosterone level. Monitor kidney stone. [facility] Medical History No known health problems No known health problems Social History (System 10/17/23 @ 07:42 by Surekha Basurto) Alcohol intake: never Substance Use Type: Marijuana Review of Systems Const All systems reviewed & are unremarkable except as noted in HPI and below Reports no additional complaints Eyes Reports no additional complaints ENT Reports no additional complaints Card Reports no additional complaints Resp Reports no additional complaints GI Reports no additional complaints Reports as per HPI Musc Reports no additional complaints Skin/Breast Reports system reviewed and no additional complaints, except as documented Neuro Reports no additional complaints Psych Reports no additional complaints Endo Reports no additional complaints Morales/Lymph Reports no additional complaints Aller/Immun Reports no additional complaints Physical Exam Const General: healthy appearing, no acute distress and well developed Orientation/consciousness: patient oriented x3 HEENT Head: Yes normocephalic and Yes atraumatic Eyes Conjunctivae: conjunctivae normal Neck Neck: Yes normal visual inspection Chest Chest palpation & inspection: normal inspection of the chest Resp Effort & Inspection: normal respiratory effort Cardio Rate: regular rate GI Inspection: Yes normal to inspection Neuro General: patient oriented x3 Extrem General: No pedal edema Psych Appearance: grossly normal Affect: normal affect Results AMB Urinalysis, Automated UA Leukoctes 0 Mariaelena/uL Last Edit by PHAN Shaver on 09/23/24 09:31 UA Nitrite Negative Last Edit by PHAN Shaver on 09/23/24 09:31 UA Urobilinogen 0.2 mg/dL Last Edit by PHAN Shaver on 09/23/24 09:3 1 UA Protein 30 mg/dL Last Edit by PHAN Shaver on 09/23/24 09:31 UA pH 6.0 Last Edit by PHAN Shaver on 09/23/24 09:31 UA Blood 0 Loki/uL Last Edit by PHAN Shaver on 09/23/24 09:31 UA Specific [place] 1.030 Last Edit by PHAN Shaver on 09/23/24 09: 31 UA Ketone Positive Last Edit by PHAN Shaver on 09/23/24 09:31 UA Bilirubin 0 mg/dL Last Edit by PHAN Shaver on 09/23/24 09:31 UA Glucose 0 mg/dL Last Edit by PHAN Shaver on 09/23/24 09:31 Results Reviewed Results Reviewed: Laboratory Last Values Urine pH (Auto) 6.0 09/23/24 09:31 Specific [place] (Auto) 1.030 09/23/24 09:31 Urine Protein (Auto) 30 mg/dL 09/23/24 09:31 Glucose (UA)(Auto) 0 mg/dL 09/23/24 09:31 Urine Ketones (Auto) Positive 09/23/24 09:31 Urine Blood (Auto) 0 Loki/uL 09/23/24 09:31 Urine Nitrite (Auto) Negative 09/23/24 09:31 Urine Bilirubin (Auto) 0 mg/dL 09/23/24 09:31 Urine Urobilinogen (Auto) 0.2 mg/dL 09/23/24 09:31 Leukocyte Esterase (Auto) 0 Mariaelena/uL 09/23/24 09:31 Assessment & Plan Assessment & Plan (1) Kidney stone: Code(s): N20.0 - Calculus of kidney Category: Medical (2) Erectile dysfunction: Code(s): N52.9 - Male erectile dysfunction, unspecified Category: Medical Plan Testosterone level, Monitor kidney stone Orders: Orders US renal BI 09/23/24 N20.0 - Calculus of kidney AMB Urinalysis Automated 09/23/24 Z13.9 - Encounter for screening, unspecified Testosterone, Free/Total 09/23/24 N52.9 - Male erectile dysfunction, unspecified Patient Instructions: The patient had an opportunity to ask questions regarding treatment plan. The patient expressed understanding and agreement with the above treatment plan. The patient is aware they should contact our office by phone for worsening of their current condition or the appearance of new symptoms. Compliance is encouraged with any medications and followup testing that is ordered. It is a privilege to be allowed the opportunity to participate in the urologic care of your patient. If you have any questions or concerns regarding treatment for the above conditions please do not hesitate to contact me. The office telephone contact is [phone]. This note is constructed in part using voice recognition software. While every effort has been made to ensure accuracy electric motor tester assembler errors may have been included. Yours sincerely, Praful Whalen MD Coding Level of Care Code New Pt Level 4 (23630) Diagnoses Kidney stone N20.0 Erectile dysfunction N52.9
== END 2024-09-23 10:48 | disposition home or self-care (01) ==
PROVIDERS: PCP Registered Nurse; Visit Provider Urology
DX: N20.0 Calculus of kidney (principal); N52.9 Male erectile dysfunction, unspecified
CPT/HCPCS: 99204

== ENCOUNTER → 2024-09-23 08:34 | Outpatient (BNVA) | payer MEDICAID, SELFPAY | PROVIDERS: PCP Registered Nurse; Visit Provider Urology | DX: N20.0 Calculus of kidney (principal); N52.9 Male erectile dysfunction, unspecified | CPT/HCPCS: 81003; 99202 ==

== ENCOUNTER 2024-11-20 09:51 | Outpatient (REF) | payer MEDICAID, SELFPAY ==
--- NOTE | ~2024-11-20 | US_ITS ---
CLINICAL HISTORY: N20.0 - Calculus of kidney US Renal Comparison: None Findings: Right kidney normal size and echotexture, 11.5 cm length. Left kidney normal size and echotexture, 11.3 cm length. No collecting system dilatation of either kidney. Normal color Doppler. The appearance of visualized portions of the liver suggests fatty infiltration. IMPRESSION: 1. Normal kidneys. 2. Hepatic steatosis This document has been electronically signed by: Man Canales MD on 11/22/2024 08:01:04
== END 2024-11-20 09:52 | disposition home or self-care (01) ==
LOC: HO.US 09:51
PROVIDERS: PCP Registered Nurse; Visit Provider Urology
DX: N20.0 Calculus of kidney (principal)
CPT/HCPCS: 76775

== ENCOUNTER → 2024-11-20 09:53 | Outpatient (BNV) | payer MEDICAID, SELFPAY | PROVIDERS: PCP Registered Nurse; Visit Provider Specialist | DX: N20.0 Calculus of kidney (principal) | CPT/HCPCS: 76775 ==

== ENCOUNTER 2024-11-27 10:12 | Outpatient (REF) | payer MEDICAID, SELFPAY ==
[2024-12-02 13:28] LABS: Testosterone, Free 111.7 pg/mL (35.0-155.0); Testosterone, Total 456 ng/dL (250-1100)
== END 2024-11-27 10:13 | disposition home or self-care (01) ==
LOC: HO.10HDL 10:12
PROVIDERS: Visit Provider Urology
DX: N52.9 Male erectile dysfunction, unspecified (principal)
CPT/HCPCS: 36415; 84402; 84403

== ENCOUNTER 2024-12-02 08:37 | Outpatient (AMB) | payer MEDICAID, SELFPAY ==
--- NOTE | 2024-12-02 08:44 | A.OFFVIS_ITS ---
Intake Visit Reasons: 10w/US/labs (US set) Intake Note: Patient is present for 10W/US/LABS Urology Medication:NONE Antibiotic Allergy:NONE Blood Thinner:NONE Striper Required: No Allergies No Known Allergies [No Known Allergies*] Allergy (Verified 12/02/24 08:45) HPI Comments Details: 12/02/2024--Alvarez is a 29-year-old male who is here for follow-up. I have reviewed renal ultrasound which is normal. Prior CT noted a 2 mm right kidney stone. I have discussed with the patient that he may have passed the stone. His testosterone levels are pending. In review of his symptoms. He states that he is having a.m. erections. Telehealth follow-up in 2 weeks to review testosterone lab results. 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 He complains of ocassi onal scrotal pain. Reviewed CT 05/19/24-- small right renal stone. He denies any urinary symptoms. Discussed will check labs, testosterone level. Monitor kidney stone. [facility] Medical History No known health problems No known health problems Social History Alcohol intake: never Substance Use Type: Marijuana Review of Systems Const All systems reviewed & are unremarkable except as noted in HPI and below Reports no additional complaints Eyes Reports no additional complaints ENT Reports no additional complaints Card Reports no additional complaints Resp Reports no additional complaints GI Reports no additional complaints Reports as per HPI Musc Reports no additional complaints Skin/Breast Reports system reviewed and no additional complaints, except as documented Neuro Reports no additional complaints Psych Reports no additional complaints Endo Reports no additional complaints Morales/Lymph Reports no additional complaints Aller/Immun Reports no additional complaints Results AMB Urinalysis, Automated UA Leukoctes 0 Mariaelena/uL Last Edit by PHAN Shaver on 12/02/24 08:59 UA Nitrite Negative Last Edit by PHAN Shaver on 12/02/24 08:59 UA Urobilinogen 0.2 mg/dL Last Edit by PHAN Shaver on 12/02/24 08:5 9 UA Protein 0 mg/dL Last Edit by PHAN Shaver on 12/02/24 08:59 UA pH 6.0 Last Edit by PHAN Shaver on 12/02/24 08:59 UA Blood 0 Loki/uL Last Edit by PHAN Shaver on 12/02/24 08:59 UA Specific [facility] 1.020 Last Edit by PHAN Shaver on 12/02/24 08: 59 UA Ketone Negative Last Edit by PHAN Shaver on 12/02/24 08:59 UA Bilirubin 0 mg/dL Last Edit by PHAN Shaver on 12/02/24 08:59 UA Glucose 0 mg/dL Last Edit by PHAN Shaver on 12/02/24 08:59 Results Reviewed Results Reviewed: Laboratory Last Values Urine pH (Auto) 6.0 12/02/24 08:59 Specific [facility] (Auto) 1.020 12/02/24 08:59 Urine Protein (Auto) 0 mg/dL 12/02/24 08:59 Glucose (UA)(Auto) 0 mg/dL 12/02/24 08:59 Urine Ketones (Auto) Negative 12/02/24 08:59 Urine Blood (Auto) 0 Loki/uL 12/02/24 08:59 Urine Nitrite (Auto) Negative 12/02/24 08:59 Urine Bilirubin (Auto) 0 mg/dL 12/02/24 08:59 Urine Urobilinogen (Auto) 0.2 mg/dL 12/02/24 08:59 Leukocyte Esterase (Auto) 0 Mariaelena/uL 12/02/24 08:59 Date of Service: 11/20/24 US Renal Comparison: None Findings: Right kidney normal size and echotexture, 11.5 cm length. Left kidney normal size and echotexture, 11.3 cm length. No collecting system dilatation of either kidney. Normal color Doppler. The appearance of visualized portions of the liver suggests fatty infiltration. IMPRESSION: 1. Normal kidneys. 2. Hepatic steatosis Assessment & Plan Assessment & Plan (1) Kidney stone: Code(s): N20.0 - Calculus of kidney Category: Medical (2) Erectile dysfunction: Code(s): N52.9 - Male erectile dysfunction, unspecified Category: Medical Plan Testosterone levels pending Orders: Orders AMB Urinalysis Automated Today Z13.9 - Encounter for screening, unspecified Patient Instructions: The patient had an opportunity to ask questions regarding treatment plan. The patient expressed understanding and agreement with the above treatment plan. The patient is aware they should contact our office by phone for worsening of their current condition or the appearance of new symptoms. Compliance is encouraged with any medications and followup testing that is ordered. It is a privilege to be allowed the opportunity to participate in the urologic care of your patient. If you have any questions or concerns regarding treatment for the above conditions please do not hesitate to contact me. The office telephone contact is [phone]. This note is constructed in part using voice recognition software. While every effort has been made to ensure accuracy laborer steel handling errors may have been included. Yours sincerely, Praful Whalen MD Coding Level of Care Code Est Pt Level 3 (30732) Diagnoses Kidney stone N20.0 Erectile dysfunction N52.9
== END 2024-12-02 09:56 | disposition home or self-care (01) ==
PROVIDERS: PCP Registered Nurse; Visit Provider Urology
DX: N20.0 Calculus of kidney (principal); N52.9 Male erectile dysfunction, unspecified; Z13.9 Encounter for screening, unspecified
CPT/HCPCS: 99213

== ENCOUNTER → 2024-12-02 08:37 | Outpatient (BNVA) | payer MEDICAID, SELFPAY | PROVIDERS: PCP Registered Nurse; Visit Provider Urology | DX: N20.0 Calculus of kidney (principal); N52.9 Male erectile dysfunction, unspecified | CPT/HCPCS: 81003; 99212 ==

== ENCOUNTER 2024-12-16 07:24 | Outpatient (AMB) | payer MEDICAID, SELFPAY ==
--- NOTE | 2024-12-16 07:23 | A.OFFVIS_ITS ---
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 I have reviewed testosterone levels which are within normal limits total testosterone 456 and free testosterone 111.7. The patient has a.m. erections and admits that the concerns he has is inconsistent as far as having erections during sexual activity. I have discussed trial of Viagra or Cialis. At this time the patient does not want to use medication. He is to call if he changes his mind. Otherwise we will follow-up in 1 year with renal ultrasound to monitor kidney stone. 12/02/2024--Alvarez is a 29-year-old male who is here for follow-up. I have reviewed renal ultrasound which is normal. Prior CT noted a 2 mm right kidney stone. I have discussed with the patient that he may have passed the stone. His testosterone levels are pending. In review of his symptoms. He states that he is having a.m. erections. Telehealth follow-up in 2 weeks to review testosterone lab results. 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 He complains of ocassional scrotal pain. Reviewed CT 05/19/24-- small right renal stone. He denies any urinary symptoms. Discussed will check labs, testosterone level. Monitor kidney stone. [facility] Medical History No known health problems No known health problems Social History Alcohol intake: never Substance Use Type: Marijuana Review of Systems Const All systems reviewed & are unremarkable except as noted in HPI and below Reports no additional complaints Eyes Reports no additional complaints ENT Reports no additional complaints Card Reports no additional complaints Resp Reports no additional complaints GI Reports no additional complaints Reports as per HPI Musc Reports no additional complaints Skin/Breast Reports system reviewed and no additional complaints, except as documented Neuro Reports no additional complaints Psych Reports no additional complaints Endo Reports no additional complaints Morales/Lymph Reports no additional complaints Aller/Immun Reports no additional complaints Telehealth Telehealth Telehealth Platform: [facility] Location of provider rendering services: practice address Location of patient: address on file Patient Identification confirmed using: Name, : Yes Telehealth method: voice only Patient verbally consented to treatment: Yes Patient verbally consented to billing insurance company: Yes Patient informed of any privacy concerns related to visit: Yes Minutes spent on Phone/Video with Pt.: 12 Assessment & Plan Assessment & Plan (1) Kidney stone: Code(s): N20.0 - Calculus of kidney Category: Medical (2) Erectile dysfunction: Code(s): N52.9 - Male erectile dysfunction, unspecified Category: Medical Plan The patient has a.m. erections and admits that the concerns he has is inconsistent as far as having erections during sexual activity. I have discussed trial of Viagra or Cialis. At this time the patient does not want to use medication. He is to call if he changes his mind. Otherwise we will follow-up in 1 year with renal ultrasound to monitor kidney stone. Orders: Orders US renal BI 11 Months N20.0 - Calculus of kidney Patient Instructions: The patient had an opportunity to ask questions regarding treatment plan. The patient expressed understanding and agreement with the above treatment plan. The patient is aware they should contact our office by phone for worsening of their current condition or the appearance of new symptoms. Compliance is encouraged with any medications and followup testing that is ordered. It is a privilege to be allowed the opportunity to participate in the urologic care of your patient. If you have any questions or concerns regarding treatment for the above conditions please do not hesitate to contact me. The office telephone contact is [phone]. This note is constructed in part using voice recognition software. While every effort has been made to ensure accuracy fabrication mig welder errors may have been included. Yours sincerely, Praful Whalen MD Coding Level of Care Code Tele Est Pt Level 3 (04899) Diagnoses Kidney stone N20.0 Erectile dysfunction N52.9
--- OUTSIDE RECORDS SUMMARY | 2024-12-16 07:26 | XMS_ITS | Clinical Summary ---
Author Organization [employer] Address [address] [place] [address] Care Team Providers Care Director Of Quality Improvement Name Role Phone Jessie Rene CAKE KNOCKER Primary Care Provider [phone] Allergies No known active allergies Medications * This document contains information received from the source organization and may not represent a complete record from that organization. folic acid (Folvite) 1 MG tablet Take 1 tablet by mouth in the morning. 04/28/2020 Active thiamine (Vitamin B-1) 100 MG tablet Take 1 tablet by mouth in the morning. 04/28/2020 Active multivitamin (Theragran) tablet 1 tablet PO once daily. 05/22/2020 Active acetaminophen (Tylenol) 500 MG tablet Take 1 tablet by mouth every 12 (twelve) hours. 01/29/2021 Active ibuprofen 600 MG tablet Take 1 tablet by mouth every 8 (eight) hours. 01/29/2021 Active Omeprazole 20 MG tablet delayed-release Indications:Dys pepsia Take 20 mg by mouth in the morning and at bedtime. 60 tablet 1 10/18/2022 Active Denta 5000 Plus 1.1 % cream BRUSH TEETH TWICE A DAY DIRECTED MORNING AND EVENING 11/09/2022 Active famotidine (Pepcid) 20 MG tabletIndicatio ns:Dyspepsia Take 1 tablet (20 mg) by mouth 2 times daily. 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 Rx Aldara cream three times per week Up to 8w. Will refer to dermatology if sxs do not seem to improve within 4-6w ST I testing ordered. FU w PCP Lower urinary tract symptoms (LUTS) 01/08/2023 Overview (01/08/2023): ?? Vague hx of scrotal pain, ED, and mild LUTS ?? Scrotal ultrasound completed 09/2022 showed bilateral small hydrocele ?? Referred to urology 11/2022 ?? Negative STI screening 10/2022 ?? Testosterone WNL 10/2022 Assessment & Plan (01/08/2023 9:10 PM EST): ?? Sx improving with flomax. Continue daily use ?? Reschedule initial appointment with urology ?? Contact HC if experiencing pain, dysuria, scrotal swelling, or inability to produce urine Alcohol use disorder in remission 10/18/2022 Overview (01/08/2023): - Previously seen by Dr. Chapin in MAT program - Has maintained sobriety since program discharge 03/2021 Depression 10/18/2022 Overview (01/08/2023): ?? Stable with lifestyle mngmt only ?? No current pharmacologic or therapeutic interventions Assessment & Plan (01/08/2023 9:11 PM EST): ?? Improving with increased exercise. ?? Contact HC if sx worsen to discuss pharmacologic and/or behavioral interventions Resolved Problems Problem Noted Date Diagnosed Date Resolved Date Contact dermatitis 05/08/2012 Herpes simplex 05/08/2012 10/18/2022 Otitis media 05/08/2012 10/18/2022 Viral disease 05/08/2012 10/18/2022 Encounters Date Type Department Care Team Description 11/20/[address] [facility] External Provider, [facility] 10/09/2024 2:00 PM EST Office Visit [facility] [address] [place] [address] DentJessie FNP Healthcare maintenance (Primary Dx); Chest pain, unspecified type; Skin pustule; Encounter for immunization 10/09/2024 Travel 09/30/2024 Patient Outreach [facility] [address] [place] [address] DentJessie FNP Pre-visit Planning ([facility] screening was completed on 06/21/2024) from Last 3 Months Immunizations Name Administration Dates Next Due DTP 07/15/1997, 6,12/15/1994,07/13,06/13/1994,1993,1993 Hep B, Adolescent or Pediatric 4,06/13/1994,1993,09/13,1993,1993 Hib (HbOC) 07/15/1997, 5,06/13/1994,09/13 Hib (PRP-T) 12/15/1994,06/29/1994,1993 IPV 07/15/1997, 5,06/29/1994,06/13,1993,1993 Influenza injectable quadriv alent preservative free 10/25/2019 Influenza, seasonal, injecta ble, preservative free 10/09/2024 MMR 07/04/1996,12/15/1994 Meningococcal MPSV4 12/25/2007 Tdap 12/25/2007,07/25/2006 Social History Tobacco Use Types Packs/Day Years Used Date Smoking Tobacco: Never Passive Smoke Exposure: Never Smokeless Tobacco: Never Tobacco Cessation:Counseling Given: Not Answered Alcohol Use Standard Drinks/Week Comments Not Currently 0 (1 standard drink = 0.6 oz pur e alcohol) Depression Answer Date Recorded Patient Health Questionnaire-9 Score 0 10/09/2024 Patient Health Questionnaire-9 Score 0 10/09/2024 Last PHQ-9: Questionnaire Data Not on file 1 12/09/2023 Housing Stability Answer Date Recorded What is your housing situation today? I have juan pablo morel 06/21/[address] you li ve. Do you have problems with any of the following? None of the above 06/21/2024 Food Insecurity Answer Date Recorded Within the past 12 months, y ou worried that your food would run out before you got money to buy more: Never True 06/21/2024 Within the past 12 months,th e food you bought just didn't last and you didn't have enough money to get more: Never True 07/2024 Transportation Answer Date Recorded In the past 12 months, has l ack of transportation kept you from medical appts, meetings, work or from getting things needed for daily living? No 06/21/2024 Utilities Answer Date Recorded In the past 12 months, has t he electric, gas, oil or water company threatened to shut off services in your home? No 06/21/2024 Depression Answer Date Recorded Patient Health Questionnaire-2 Score 0 10/09/2024 Internet Access Answer Date Recorded Internet Access Q1 Yes 07/15/2024 Internet Access Q2 Not on file 07/15/2024 Sex and Gender Information Value Date Recorded Sex Assigned at Male 09/12/2022 10:15 AM EDT Legal Sex Male 10:15 AM EDT Gender Identity Male 09/12/2022 10:15 AM EDT Sexual Orientation Straight 09/12/2022 10 :15 AM EDT Last Filed Vital Signs Vital Sign Reading Time Taken Comments Blood Pressure 130/85 10/09/2024 1:49 PM EST Pulse 80 10/09/2024 1:49 PM EST Temperature 36.3 ??C (97.3 ??F) 10/09/2024 1:49 PM ES T Respiratory Rate 20 10/09/2024 1:49 PM EST Oxygen Saturation 98% 10/09/2024 1:49 PM EST Inhaled Oxygen Concentration - - Weight 99.5 kg (219 lb 6.4 oz) 10/09/2024 1:49 P M EST Height 175.3 cm (5' 9 ) 10/09/2024 1:49 PM EST Body Mass Index 32.4 10/09/2024 1:49 PM EST Plan of Treatment Health Maintenance Due Date Last Done Comments Family Planning (PISQ) 2008 COVID-19 Vaccine ( season) 2024 Alcohol/Substance Use Screening 06/21/2025 06/21/2024 SDOH Screening 06/21/2025 06/21/2024 Depression Screening 10/09/2025 10/09/2024, 10/09/20 24 Tobacco Screening 10/20/2025 10/20/2024 DTaP/Tdap/Td Vaccines (8 - Td or Tdap) 11/13/2027 12/25/2007, 07/25/2006, 07/15/1997, Additional history exists Postponed from 12/25/2017 (Other System Reasons) Lipid Panel 11/08/2028 11/08/2023, 06/24/2022 Zoster Vaccines (1 of 2) 2043 RSV Patients and Patients Aged 60 years or older (1 - 1-dose 75+ series) 2068 Hepatitis B Vaccines Completed 07/13/1994, 06/13/1994, 1993, Additional history exists HIB Vaccines Completed 07/15/1997, 12/1994, 12/15/1994, Additional history exists IPV Vaccines Completed 07/15/1997, 12/1994, 06/29/1994, Additional history exists Meningococcal Vaccine Aged Out 12/25/2007 No buck ramos eligible based on patient's age to complete this topic HIV Screening Completed 11/08/2023, 06/13, 08/13/2020 Hepatitis C Screening Completed 11/08/2023 , 06/24/2022, 08/13/2020 Influenza Vaccine Completed 10/09/2024, 10/25/2019 HPV Vaccines Aged Out No longer eligi ble based on patient's age to complete this topic Hepatitis A Vaccines Discontinued Pneumococcal Vaccine: Pediatrics (0 to 5 Years) and At-Risk Patients (6 to 49) Years) Aged Out No longer eligible based on patient's age to complete this topic RSV under 20 months Aged Out No longe r eligible based on patient's age to complete this topic Rotavirus Vaccines Aged Out No longer eligible based on patient's age to complete this topic Procedures Procedure Name Priority Date/Time Associated Diagnosis Comments US RENAL BI Routine 11/22/2024 8:01 AM EST ECG 12-LEAD Routine 10/20/2024 8:10 PM EST Chest pain, unspecified type HEPATITIS PANEL, GENERAL Routine 11/08/2023 10:37 AM EST Lesion of penis HIV 1/2 ANTIGEN/ANTIBODY, FOURTH GENERATION W/RFL Routine 11/08/2023 10:37 AM EST Lesion of penis LIPID PANEL, STANDARD Routine 11/08/2023 10:37 AM EST Healthcare maintenance from Last 3 Months or Most Recently Relevant to Health Maintenance Results * US RENAL BI (11/22/2024 8:01 AM EST) Anatomical Region Laterality Modality Abdomen Ultrasound 11/22/2024 8:01 AM EST Narrative 11/22/2024 8:02 AM EST ? [facility] ?[address] ?[place] [address] ? Ultrasound Report ? Signed ? Patient: Alvarez Guidry Jr ?MR#: [id number] ?? [id number] ? : 1995 ?Acct:[id number] ? Age/Sex: 29 / M ?ADM Date: 11/20/24 ? Loc: HO.US ? Attending Dr: Praful Whalen MD ? Ordering Physician: Praful Whalen MD ?? Date of Service: 11/20/24 ?? Procedure(s): US renal BI ?? Accession Number(s): [id number] ? cc: Praful Whalen MD; Jessie ReneP ? CLINICAL HISTORY: N20.0 - Calculus of kidney ? US Renal ? Comparison: None ? Findings: ?? Right kidney normal size and echotexture, 11.5 cm length. ?? Left kidney normal size and echotexture, 11.3 cm length. ? No collecting system dilatation of either kidney. Normal color Doppler. ? The appearance of visualized portions of the liver suggests fatty ?? infiltration. ? IMPRESSION: ?? 1. Normal kidneys. ? 2. Hepatic steatosis ? This document has been electronically signed by: Man Canales MD on ?? 11/22/2024 08:01:04 ? Dictated By: ?Man Canales MD ? Signed By: ?<Electronically signed by Man Canales MD in OV> ?11/22/24 0802 ? DD/ 0801 ? TD/TT: 11/22/24 0801 ? Ironer Machine: ? Procedure Note Donotuseinterpreter, Image - 11/22/[address] [address] Ultrasound Report Signed Patient: Alvarez Guidry [facility]#: [id number] : 1995Acct:[id number] Age/Sex: 29 / MADM Date: 11/20/24 Loc: HO.US Attending Dr: Praful Whalen MD Ordering Physician: Praful Whalen MD Date of Service: 11/20/24 Procedure(s): US renal BI Accession Number(s): [id number] cc: [facility]ful Whalen MD; [facility]INICAL HISTORY: N20.0 - Calculus of kidney US Renal Comparison: None Findings: Right kidney normal size and echotexture, 11.5 cm length. Left kidney normal size and echotexture, 11.3 cm length. No collecting system dilatation of either kidney. Normal color Doppler. The appearance of visualized portions of the liver suggests fatty infiltration. IMPRESSION: 1. Normal kidneys. 2. Hepatic steatosis This document has been electronically signed by: Man Canales MD on 11/22/2024 08:01:04 Dictated By: Man Canales MD Signed By: <Electronically signed by Man Canales MD in OV> 11/22/24 08 DD/ 08 TD/TT: 11/22/24 08 Ironer Machine: Result [facility] External Provider IMG US PROCEDURES Final Result * ECG 12 lead (10/20/2024 8:10 PM EST) Narrative [facility] - 10/20/2024 8:10 PM EST NSR. See scanned report Result [facility] ECG ORDERABLES Final Result * Hepatitis Panel, General (11/08/2023 10:37 AM EST) Hepatitis A IgM Nonreactive Nonreactive [facility] Comment:IgM antibodies to WANG V not detected; does not exclude earlyacute or recovered HAV infection. ~Hepatitis B Surface Antibody NONREACTIVE Nonreactive [facility] Comment:Nonreactive: < 8.00 mIU/mL Hepatitis B Core Antibody Nonreactive Nonreactive [facility] Hepatitis C Antibody Nonreactive Nonreactive [facility] Comment:Antibodies to HCV no t detected; does not exclude early acuteHCV infection. Hepatitis B Surface Ag Negative Negative [facility] Blood 11/08/2023 10:3 7 AM EST 11/08/2023 11:36 AM EST us Dory Moreno MD LAB BLOOD ORDERABLES Fin al Result Performing Organization Address [facility]/ZIP Co de Phone Number [facility] [address] [place] [phone] * HIV-1/2 Antigen and Antibodies, Fourth Generation, with Reflexes (11/08/2023 10:37 AM EST) HIV AB/AG Nonreactive Nonreactive [facility] Comment:HIV-1 p24 Ag and/or HIV-1/HIV-2 Ab not detected.A test result that is nonreactive does not exclude thepossibility of exposure to or infection with HIV-1 and/orHIV-2. Nonreactive results in this assay for individualswith prior exposure to HIV-1 and/or HIV-2 may be due toantigen and antibody levels that are below the limit ofdetection of this assay.The EQUISO HIV Ag/Ab Combo assay result andsupplemental assay results should be interpreted inconjunction with the patient's clinical presentation,history and other laboratory results. If the results areinconsistent with clinical evidence, additional testing issuggested to confirm the result. Blood Venous blood specimen / Unknown 11/08/2023 10:37 AM EST 11/08/2023 11:36 AM EST Dory Moreno MD LAB BLOOD ORDERABLES Fin al Result Performing Organization Address [facility]/ZIP Co de Phone Number [facility] [address] [place] [phone] * Lipid Panel, Standard (11/08/2023 10:37 AM EST) Triglycerides 62 <150 mg/dL [facility] Comment:Desirable Triglyceri de: less than 150 mg/dLBorderline High Triglyceride 150-199 mg/dLHigh Triglyceride: 200-499 mg/dLVery High Triglyceride: greater than or equal to 5OO mg/dL Cholesterol 136 <200 mg/dL [facility] Comment:Desirable Cholestero l: less than 200 mg/dLBorderline High Cholesterol: 200-239 mg/dLHigh Cholesterol: greater than 239 mg/dL LDL Cholesterol Calculated 82 <100 mg/dL [facility] Comment:Desirable LDL: less than 100 mg/dLNear Optimal/Above Optimal LDL: 110- 129 mg/dLBorderline High LDL: 130-159 mg/dLHigh LDL: 160-189 mg/dLVery High LDL: greater than or equal to 190 mg/dL HDL Cholesterol 42 >40 mg/dL [facility] Comment:Desirable HDL: great er than 40 mg/dL Note: This HDL assay may give artificially low results in patients with liver disease. Blood Venous blood specimen / Unknown 11/08/2023 10:37 AM EST 11/08/2023 11:36 AM EST [facility] LAB BLOOD ORDERABLES Final Re sult [facility] [address] [place], [place] [phone] from Last 3 Months or Most Recently Relevant to Health Maintenance Insurance [facility] C3 Care Teams Director Of Quality Improvement Relationship Specialty Start Date End Date Jessie Rene FNP [address] [place] [phone] PCP - General Family Medicine 08/10/21
--- OUTSIDE RECORDS SUMMARY | 2024-12-16 07:26 | XMS_ITS | Clinical Summary ---
Author Organization [facility] Address [address] [place] [phone] Phone Care Team Providers Care Soil Engineer Name Role Phone Man Castro MD Primary Care Provider Unavailabl e Immunizations Name Administration Dates Next Due DTP 07/15/1997,06/06/1996,12/15/1994 ,07/13/1994,1993 Hep B, ped/adol 07/13/1994,1993,1993 Hib (PRP-T) 12/15/1994,06/29/1994,1993 IPV 07/15/1997,12/15/1994,06/29/1994 ,1993 MMR 07/04/1996,12/15/1994 Tdap 07/25/2006 Family History Relation Name Status Comments Brother Alive Brother: Alive and well, Asthma, Strabismus/amblyopia Father Alive Father: Alive a nd well Maternal Grandfather Materna l uncle: Seizure disorder Maternal Grandmother Materna l grandmother: Asthma Mother Alive Mother: Alive a nd well Sister Alive Sister: Asthma Social History Tobacco Use Types Packs/Day Years Used Date Smoking Tobacco: Never Assessed Sex and Gender Information Value Date Recorded Sex Assigned at Not on file Legal Sex Male 4:14 PM EDT Gender Identity Not on file Sexual Orientation Not on file Plan of Treatment Health Maintenance Due Date Last Done Comments Varicella Vaccines (1 of 2 - 13+ 2-dose series) 2006 Consider Men B Vaccine (1 of 2 - Bexsero 2-dose series) 2009 DTaP,Tdap,and Td Vaccines (7 - Td or Tdap) 07/25/2016 07/25/2006, 07/15/1997, 06/06/1996, Additional history exists Influenza Vaccines (#1) 2024 COVID-19 Vaccine (1 - 2023- season) 2024 Hepatitis B Vaccines Completed 07/13/1994, 1993, 1993 HIB Vaccines Completed 12/15/1994, 06/13, 1993 MMR Vaccines Completed 07/04/1996, 12/15/1994 IPV Vaccines Completed 07/15/1997, 12/1994, 06/29/1994, Additional history exists HPV Vaccines Aged Out No longer eligi ble based on patient's age to complete this topic Hepatitis A Vaccines Aged Out No long er eligible based on patient's age to complete this topic Men B Vaccine Aged Out No longer elig ible based on patient's age to complete this topic Meningococcal Vaccine Aged Out No buck ramos eligible based on patient's age to complete this topic Pneumococcal Vaccine Aged Out No long er eligible based on patient's age to complete this topic Care Teams Soil Engineer Relationship Specialty Start Date End Date Man Castro MD PCP - General 06/23/17
--- OUTSIDE RECORDS SUMMARY | 2024-12-16 07:26 | XMS_ITS | Encounter Summary ---
Author Organization [employer] Address [address] [place] [address] Care Team Providers Care Manager Employment Name Role Phone Jessie Rene POUND KEEPER Primary Care Provider [phone] Encounter Details Date Type Department Care Team (Late st Contact Info) Description 11/20/2024 Orders Only [facility] External Provider, [facility] Social History Tobacco Use Types Packs/Day Years Used Date Smoking Tobacco: Never Passive Smoke Exposure: Never Smokeless Tobacco: Never Alcohol Use Standard Drinks/Week Comments Not Currently [...] Orientation Straight 09/12/2022 10 :15 AM EDT documented as of this encounter Plan of Treatment Not on file documented as of this encounter Procedures Procedure Name Priority Date/Time Associated Diagnosis Comments US RENAL BI Routine 11/22/2024 8:01 AM EST documented in this encounter Results * US RENAL BI (11/22/2024 8:01 AM EST) Anatomical Region Laterality Modality Abdomen Ultrasound 11/22/2024 8:01 AM EST Narrative 11/22/2024 8:02 AM EST ? [facility] ?[address] ?[place] [address] ? Ultrasound Report ? Signed ? Patient: Alvarez Guidry Jr ?MR#: [id number] ?? [id number] ? : 1995 ?Acct:[id number] ? Age/Sex: 29 / M ?ADM Date: 11/20/24 ? Loc: HO.US ? Attending Dr: Praful Whalen MD ? Ordering Physician: Praful Whalen MD ?? Date of Service: 11/20/24 ?? Procedure(s): US renal BI ?? Accession Number(s): [id number] ? cc: Praful Whalen MD; Jessie Rnee POUND KEEPER ? CLINICAL HISTORY: N20.0 - Calculus of [...] ?11/22/24 0802 ? DD/ 0801 ? TD/TT: 11/22/24800 ? [employer]: ? Procedure Note Donjayda, Ney - 11/22/[address] [address] Ultrasound Report Signed Patient: Alvarez Guidry [facility]#: [id number] : 1995Acct:[id number] Age/Sex: 29 MADM Date: 11/20/24 Loc: HO.US Attending Dr: Praful Whalen MD Ordering Physician: Praful Whalen MD Date of Service: 11/20/24 Procedure(s): US renal BI Accession Number(s): [id number] cc: Praful Whalen MD; [facility] CLINICAL HISTORY: N20.0 - Calculus of kidney [...] signed by Man Canales MD in OV> 11/22/24801 DD/ 0 TD/TT: 11/22/24800 [employer]: us [facility] External Provider IMG US PROCEDURES Final Result documented in this encounter Visit Diagnoses Not on filedocumented in this encounter Additional Health Concerns Assessment Noted Time PHQ-9 Depression Total Score: 0 10/09/20 24 1:55 PM EST documented as of this encounter Care Teams Manager Employment Relationship Specialty Start Date End Date Jessie Rene FNP [address] [place] [phone] PCP - General Family Medicine 08/10/21 documented as of this encounter
== END 2024-12-16 08:40 | disposition home or self-care (01) ==
LOC: HO.HUSH 07:24
PROVIDERS: PCP Registered Nurse; Visit Provider Urology
DX: N20.0 Calculus of kidney (principal); N52.9 Male erectile dysfunction, unspecified
CPT/HCPCS: 99213

== ENCOUNTER 2025-02-18 13:18 | Emergency (ER) | payer MEDICAID, SELFPAY ==
--- NOTE | ~2025-02-18 | XR_ITS ---
EXAMINATION: XR CHEST CLINICAL INFORMATION: cough, sob COMPARISON: 07/01/2011. TECHNIQUE: 2 views of the chest were obtained. FINDINGS: The cardiac, hilar, and mediastinal contours are normal. The lungs are clear bilaterally. There is no pneumothorax or pleural effusion. There is no focal osseous or soft tissue abnormality. XR/XR chest 2V IMPRESSION: Normal chest. Electronically signed by: Apolinar Wood MD 02/18/2025 02:01 PM EDT
[2025-02-18 13:34] VITALS: BP 119/71; BP 152/99; PULSE 80; RESP 16; TEMP 36.9; O2SAT 95; O2SAT 97; BMI 31.6
--- NOTE | 2025-02-18 13:42 | ED_ITS ---
HPI - SOB/Dyspnea General Chief Complaint: Dyspnea Stated Complaint: diff breathing, vomiting Time Seen by Provider: 02/18/25 13:23 Source: patient, EMS, RN notes reviewed and old records reviewed Mode of arrival: EMS Limitations: no limitations History of Present Illness ED Provider: Kimberly Roger PA-C HPI Narrative: 29 yo male with history of kidney stones, erectile dysfunction who presents to the ER from home via EMS for evaluation of cough, congestion, SOB, nausea and vomiting for the last couple of days. he has not vomited today. he denies abdominal pain. he has had a dry cough, scratchy throat, nasal and chest congestion. unsure if he has had fevers. he has bilateral chest discomfort with coughing and sneezing. no known sick contacts. no SOB or difficulty breathing. he is a nonsmoker with no history of asthma or copd. MD elicited complaint: cough Onset (ago): day(s) Context: recent illness Timing: progressively worsening Severity: moderate Exacerbating factors: coughing Relieving factors: rest and upright position Associated symptoms: cough and chest congestion Treatment prior to arrival: none Related Data Home oxygen amount: none Previous Rx's ?Medication ?Instructions ?Recorded amoxicillin 875 mg-potassium 1 tab PO BID pharyngitis 7 days 08/14/20 clavulanate 125 mg tablet #14 tabs (Augmentin) ibuprofen 800 mg tablet 800 mg PO Q8H PRN pain #14 tabs 08/14/20 ibuprofen 600 mg tablet 600 mg PO Q6H PRN pain #20 tabs 01/30/21 ibuprofen 600 mg tablet 600 mg PO Q6H PRN pain #20 tabs 01/30/21 benzonatate 100 mg capsule 100 mg PO TID PRN cough #20 caps 02/18/25 ondansetron 4 mg disintegrating 4 mg PO Q8H PRN nausea and 02/18/25 tablet vomiting #7 tabs Allergies Allergy/AdvReac Type Severity Reaction Status Date / Time No Known Allergies Allergy Verified 02/18/25 13:37 [No Known Allergies*] Review of Systems Review of Systems: Yes all other systems are reviewed and are negative [facility] Past Medical History Medical History No known health problems No known health problems Social History Social History Alcohol intake: never Substance Use Type: Marijuana Advance Directives: No Advance Directives Information Provided: Yes Physical Exam Vital Signs: Vital Signs: Last Vital Signs Temp 98.5 F 02/18/25 13:34 Pulse 80 02/18/25 13:34 Resp 16 02/18/25 13:34 BP 119/71 02/18/25 13:34 Pulse Ox 97 02/18/25 13:34 O2 Del Method Room Air 02/18/25 13:34 BMI result Body Mass Index 31.6 Appearance: Alert. Oriented X3. No acute distress. Head: normocephalic, atraumatic. Eyes: Pupils equal, round and reactive to light. ENT: Pharynx with moderate posterior erythema, No tonsillar swelling or exudate, uvula midline. clear nasal discharge Neck: Normal inspection. Neck supple. CVS: Normal heart rate and rhythm. Pulses normal. Respiratory: No respiratory distress. Breath sounds normal. Hoarse voice. Abdomen: Soft and nontender. +BS x4 Skin: Skin warm and dry. Normal skin color. Normal skin turgor. No rashes. Extremities: No lower extremity edema. No joint swelling. Neuro/psych: Oriented X 3. Grossly normal, nonfocal. Normal speech and cognition. Medical Decision Making Medical Decision Making [facility] Narrative: 29 yo male presenting for evaluation of cough, sore throat, N/V x2 days. VSS. lungs are clear CXR without PNA viral and strep studies negative most likely viral etiology stable for d/c home with supportive care Differential Diagnosis Differential Diagnoses: The differential diagnosis associated with the presentation includes strep, covid, flu, rsv, other viral syndrome, bronchitis, pneumonia, no evidence of peritonsillar abcsess or retropharyngeal abscess Lab Data [facility] Lab Attestation statement: I reviewed the patient's lab results. Labs: Lab Results 02/18/25 02/18/25 Range/Units 13:49 15:07 Influenza Type A (PCR) NEGATIVE (Negative) Influenza Type B (PCR) NEGATIVE (Negative) RSV RNA Qual (PCR) NEGATIVE (Negative) SARS-CoV-2 RNA (RT-PCR) NEGATIVE (Negative) S. pyogenes GrpA CHARLIE Negative (Negative) Independent Interpretation I performed an independent interpretation of an: Plain X-Ray Interpretation: no focal infiltrate or effusion Radiology Impression Discussion of test interpretation with radiology: I have reviewed the radiologist's reading. External Record Review External record reviewed: Outpatient record, Prior outpatient labs and Prior outpatient radiology Prescription Management I considered prescription management with: Antiviral and Antibiotic Critical Care Time Critical Care Time Critical Care Time: No Discharge Plan Discharge Clinical Impression: Viral URI with cough Patient Disposition: Home, Self-Care Instructions: Viral Syndrome (ED) Additional Instructions: you tested negative for COVID, Flu, and RSV No strep throat Your chest x-ray and oxygen levels were normal. Rest. Drink plenty of fluids. Do not go out in public while you are not feeling well Take over the counter cold/flu medications as needed for your symptoms. Take the prescribed cough medication and nausea medication as needed Take Tylenol and/or Motrin as needed for fevers and body aches. Follow up with your doctor as needed If you develop new or worsening symptoms call 911 or come back to the ER for further evaluation. Prescriptions: New ondansetron 4 mg tablet,disintegrating 4 mg PO Q8H PRN (Reason: nausea and vomiting) Qty: 7 0RF benzonatate 100 mg capsule 100 mg PO TID PRN (Reason: cough) Qty: 20 0RF No Action amoxicillin-pot clavulanate [Augmentin] 875-125 mg tablet 1 tab PO BID 7 Days Qty: 14 0RF ibuprofen 800 mg tablet 800 mg PO Q8H PRN (Reason: pain) Qty: 14 0RF ibuprofen 600 mg tablet 600 mg PO Q6H PRN (Reason: pain) Qty: 20 0RF ibuprofen 600 mg tablet 600 mg PO Q6H PRN (Reason: pain) Qty: 20 0RF Referrals: Jessie Rene, [employer] [Primary Care Provider] - Print Language: Kyrgyz
[2025-02-18 14:34] LABS: Influenza A PCR NEGATIVE (Negative); Influenza B PCR NEGATIVE (Negative); Resp Syncy Virus RNA Qual PCR NEGATIVE (Negative); SARS COV2 PCR INHOUSE NEGATIVE (Negative)
[2025-02-18 15:28] LABS: IDNOW Serial# 08D9AD1C; Strep A Nucleic Acid Negative (Negative)
[2025-02-18 16:32] VITALS: BP 121/74; PULSE 89; RESP 14; TEMP 37.4; O2SAT 96
[2025-02-18 16:38] VITALS: BP 121/74; PULSE 89; RESP 14; TEMP 37.4; O2SAT 96
--- OUTSIDE RECORDS SUMMARY | 2025-02-18 17:00 | XMS_ITS | Clinical Summary ---
Author Organization [facility] Address [address] [place] [address] Phone Care Team Providers Care Gas Meter Reader Name Role Phone Man Castro MD Primary Care Provider Unavailabl e Immunizations Immunization Administration Dates Next Due DTP 07/15/1997,06/06/1996,12/15/1994 ,07/13/1994,1993 [...] of 2 - 13+ 2-dose series) 2006 DTaP,Tdap,and Td Vaccines (7 - Td or Tdap) 07/25/2016 07/25/2006, 07/15/1997, 06/06/1996, Additional history exists Influenza Vaccines (#1) 2024 COVID-19 Vaccine (2023- season) 2024 Hepatitis B Vaccines Completed 07/13/1994, [...] age to complete this topic Care Teams Gas Meter Reader Relationship Specialty Start Date End Date Man Castro MD PCP - General 06/23/17
--- OUTSIDE RECORDS SUMMARY | 2025-02-18 17:00 | XMS_ITS | Encounter Summary ---
Author Organization [facility] Address [address] [place] [phone] Phone Care Team Providers Care Senior Business Intelligence Analyst Name Role Phone Man Castro MD Primary Care Provider Unavailabl e Encounter Details Date Type Department Care Team (Late st Contact Info) Description 06/29/2017 Conversion Encounter [facility] - [address] [address] Social History Tobacco Use Types Packs/Day Years Used Date Smoking Tobacco: Never Assessed Sex and Gender Information Value Date Recorded Sex Assigned at Not on file Legal Sex Male 4:14 PM EDT Gender Identity Not on file Sexual Orientation Not on file documented as of this encounter Plan of Treatment Not on file documented as of this encounter Visit Diagnoses Not on filedocumented in this encounter Care Teams Senior Business Intelligence Analyst Relationship Specialty Start Date End Date Man Castro MD PCP - General 06/23/17 documented as of this encounter
--- OUTSIDE RECORDS SUMMARY | 2025-02-18 17:00 | XMS_ITS | Encounter Summary ---
Author Organization [employer] Address [address] [place] [address] Care Team Providers Care Clinic Supervisor Name Role Phone Jessie Rene SCIENTIST Primary Care Provider [phone] Encounter Details Date Type Department Care Team (Late st Contact Info) Description 02/18/2025 Orders Only [facility] External Provider, [facility] Social History Tobacco Use Types Packs/Day Years [...] Procedure Name Priority Date/Time Associated Diagnosis Comments STREP A NUCLEIC ACID Routine 02/18/2025 3:07 PM EDT XR CHEST 2 VIEWS Routine 02/18/2025 1:42 PM EDT documented in this encounter Results * Strep A Nucleic Acid (02/18/2025 3:07 PM EDT) IDNOW SERIAL# [id number] [facility] Strep A Nucleic Acid Negative Negative [facility] Comment:All test results mus t be correlated with clinical findings.This test has not been evaluated for monitoring treatment ofinfection.Additional follow-up testing using the culture method isrequired if the result is negative and clinical symptomspersist, or in the event of an acute rheumatic feveroutbreak. 02/18/2025 3:07 PM EDT 02/18/2025 3:11 PM EDT us Generic External Data Provider LAB MICROBIOLOGY - GENERAL ORDERABLES Final Result [facility] [address] [place] [phone] * XR Chest 2 Views (02/18/2025 1:42 PM EDT) Anatomical Region Laterality Modality Chest Radiographic Linda ging 02/18/2025 1:42 PM EDT Narrative 02/18/2025 2:04 PM EDT ? [facility] ?[address] ?[place] [address] ?XRay Report ? Signed ? Patient: Guidry,Alvarez Jr ?MR#: [id number] ?? [id number] ? : 1995 ?Acct:[id number] ? Age/Sex: 29 / M ?ADM Date: 02/18/25 ? Loc: HO.ED ? Attending Dr: ? Ordering Physician: Nadege Roger ?? Date of Service: 02/18/25 ?? Procedure(s): XR chest 2V ?? Accession Number(s): [id number] ? cc: Nadege Roger; Jessie Rene [facility] ? EXAMINATION: ?? XR CHEST ? CLINICAL INFORMATION: ?? cough, sob ? COMPARISON: ?? 07/01/2011. ? TECHNIQUE: ?? 2 views of the chest were obtained. ? FINDINGS: ?? The cardiac, hilar, and mediastinal contours are normal. ? The lungs are clear bilaterally. There is no pneumothorax or pleural ?? effusion. ? There is no focal osseous or soft tissue abnormality. ? XR/XR chest 2V ?? IMPRESSION: ?? Normal chest. ? Electronically signed by: ??Apolinar Wood MD ??02/18/2025 02:01 PM EDT RP ? Dictated By: ?Apolinar Wood MD ? Signed By: ?<Electronically signed by Apolinar Wood MD in OV> ?02/18/25 1401 ? DD/ 1342 ? TD/TT: 02/18/25 1358 ? Boring Inspector: ? Procedure Note Ney Gonzales - 02/18/[address] [address] XRay Report Signed Patient: Alvarez Guidry [facility]#: [id number] : 1995Acct:[id number] Age/Sex: 29 / MADM Date: 02/18/25 Loc: HO.ED Attending Dr: Ordering Physician: Nadege Roger Date of Service: 02/18/25 Procedure(s): XR chest 2V Accession Number(s): [id number] cc: Nadege Roger; Jessie Rene EXAMINATION: XR CHEST CLINICAL INFORMATION: cough, sob COMPARISON: 07/01/2011. TECHNIQUE: 2 views of the chest were obtained. FINDINGS: The cardiac, hilar, and mediastinal contours are normal. The lungs are clear bilaterally. There is no pneumothorax or pleural effusion. There is no focal osseous or soft tissue abnormality. XR/XR chest 2V IMPRESSION: Normal chest. Electronically signed by: Apolinar Wood MD 02/18/2025 02:01 PM EDT Dictated By: Apolinar Wood MD Signed By: <Electronically signed by Apolinar Wood MD in OV> 02/18/25 1401 DD/ 1342 TD/TT: 02/18/25 1358 Boring Inspector: [facility] External Provider IMG XR PROCEDURES Final Result documented in this encounter Visit Diagnoses Not on filedocumented in this encounter Additional Health Concerns Assessment Noted Time PHQ-9 Depression Total Score: 0 10/09/20 24 1:55 PM EST documented as of this encounter Care Teams Clinic Supervisor Relationship Specialty Start Date End Date Jessie Rene FNP [address] [place] [phone] PCP - General Family Medicine 08/10/21 documented as of this encounter
--- OUTSIDE RECORDS SUMMARY | 2025-02-18 17:00 | XMS_ITS | Clinical Summary ---
Author Organization [employer] Address [address] [place] [address] Care Team Providers Care Account Resolution Specialist Name Role Phone Jessie Rene HUB CUTTER APPRENTICE Primary Care Provider [phone] Allergies No known active allergies Medications * [...] Encounters Date Type Department Care Team Description 02/18/2025 Orders Only [facility] External Provider, [facility] 01/24/2025 Population Health Risk Score [facility] Department [address] [place] [address] Provider, Population Health Generic 11/20/2024 Orders Only [facility] External Provider, [facility] from Last 3 Months Immunizations Name Administration [...] 06/21/2025 06/21/2024 Depression Screening 10/09/2025 10/09/2024, 10/09/20 Tobacco Screening 10/20/2025 10/20/2024 DTaP/Tdap/Td Vaccines (8 [...] 2 VIEWS Routine 02/18/2025 1:42 PM EDT US RENAL BI Routine 11/22/2024 8:01 AM EST HEPATITIS PANEL, GENERAL Routine 11/08/2023 10:37 AM EST Lesion of penis HIV 1/2 ANTIGEN/ANTIBODY, FOURTH GENERATION W/RFL Routine 11/08/2023 10:37 AM EST Lesion of penis LIPID PANEL, STANDARD Routine 11/08/2023 10:37 AM EST Healthcare maintenance from Last 3 Months or Most Recently Relevant to Health Maintenance Results * Strep A Nucleic Acid (02/18/2025 3:07 PM EDT) IDNOW SERIAL# [id number] [facility] Strep A Nucleic Acid Negative Negative [facility] Comment:All test results mus t [...] LAB MICROBIOLOGY - GENERAL ORDERABLES Final Result [facility] [address] [place] [phone] * XR Chest 2 Views (02/18/2025 1:42 PM EDT) Anatomical Region Laterality Modality Chest Radiographic Linda ging 02/18/2025 1:42 PM EDT Narrative 02/18/2025 2:04 PM EDT ? [facility] ?[address] ?[place] [address] ?XRay Report ? Signed ? Patient: Alvarez Guidry Jr ?MR#: [id number] ?? [id number] ? : 1995 ?Acct:[id number] ? Age/Sex: 29 / M ?ADM Date: 04/08/25 ? Loc: HO.ED ? Attending Dr: ? Ordering Physician: Nadege Roger ?? Date of Service: 02/18/25 ?? Procedure(s): XR chest 2V ?? Accession Number(s): [id number] ? cc: Nadege Roger; [facility] HUB CUTTER APPRENTICE ? EXAMINATION: ?? XR CHEST ? CLINICAL [...] DD/ 1342 ? TD/TT: 02/18/25 1358 ? Calf Skinner: ? Procedure Note Ney Gonzales - 02/18/[address] [address] XRay Report Signed Patient: Alvarez Guidry [facility]#: [id number] : 1995Acct:[id number] Age/Sex: 29 MADM Date: 02/18/25 Loc: .ED Attending Dr: Ordering Physician: Nadege Roger Date of Service: 02/18/25 Procedure(s): XR chest 2V Accession Number(s): [id number] cc: Nadege Roger; [facility] HUB CUTTER APPRENTICE EXAMINATION: XR CHEST CLINICAL INFORMATION: cough, sob [...] 02/18/25 1401 DD/ 1342 TD/TT: 02/18/25 1358 Calf Skinner: [facility] External Provider IMG XR PROCEDURES Final Result * US RENAL BI (11/22/2024 8:01 AM EST) Anatomical Region Laterality Modality Abdomen Ultrasound 11/22/2024 8:01 AM EST Narrative 11/22/2024 8:02 AM EST ? [facility] ?[address] ?[place] [address] ? Ultrasound Report ? Signed ? Patient: Alvarez Guidry Jr ?MR#: [id number] ?? [id number] ? : 1995 ?Acct:[id number] ? Age/Sex: 29 / M ?ADM Date: 11/20/24 ? Loc: HO.US ? Attending Dr: Praful Whalen MD ? Ordering Physician: Praful Whalen MD ?? Date of Service: 11/20/24 ?? Procedure(s): US renal BI ?? Accession Number(s): [id number] ? cc: Praful Whalen MD; Jessie Rene [facility] ? CLINICAL HISTORY: N20.0 - Calculus of [...] DD/ 0801 ? TD/TT: 11/22/24 0801 ? Calf Skinner: ? Procedure Note Janet, Ney - 11/22/[address] [address] Ultrasound Report Signed Patient: Alvarez Guidry [facility]#: [id number] : 1995Acct:[id number] Age/Sex: 29 / MADM Date: 11/20/24 Loc: HO.US Attending Dr: Praful Whalen MD Ordering Physician: Praful Whalen MD Date of Service: 11/20/24 Procedure(s): US renal BI Accession Number(s): [id number] cc: Praful Whalen MD; [facility] CLINICAL HISTORY: N20.0 - Calculus of kidney [...] in OV> 11/22/[address] DD/ 0 TD/TT: 11/22/24800 Calf Skinner: [facility] External Provider IMG US PROCEDURES Final Result * Hepatitis Panel, General (11/08/2023 10:37 AM EST) Hepatitis A IgM Nonreactive Nonreactive [facility] Comment:IgM antibodies to WANG V not detected; does not exclude earlyacute or recovered HAV infection. ~Hepatitis B Surface Antibody NONREACTIVE Nonreactive [facility] Comment:Nonreactive: < 8.00 mIU/mL Hepatitis B Core Antibody Nonreactive Nonreactive [facility] Hepatitis C Antibody Nonreactive Nonreactive [facility] Comment:Antibodies to HCV no t detected; does not exclude early acuteHCV infection. Hepatitis B Surface Ag Negative Negative [facility] Blood 11/08/2023 10:3 7 AM EST 11/08/2023 11:36 AM EST Dory Moreno MD LAB BLOOD ORDERABLES Fin al Result Performing Organization Address [facility] Co de Phone Number [facility] [address] [place] [phone] [phone] * HIV-1/2 Antigen and Antibodies, Fourth Generation, with Reflexes (11/08/2023 10:37 AM EST) HIV AB/AG Nonreactive Nonreactive [facility] Comment:HIV-1 p24 Ag and/or HIV-1/HIV-2 Ab not detected.A test result that is nonreactive does not exclude thepossibility of exposure to or infection with HIV-1 and/orHIV-2. Nonreactive results in this assay for individualswith prior exposure to HIV-1 and/or HIV-2 may be due toantigen and antibody levels that are below the limit ofdetection of this assay.The [employer] HIV Ag/Ab Combo assay result andsupplemental assay results should be interpreted inconjunction with the patient's clinical presentation,history and other laboratory results. If the results areinconsistent with clinical evidence, additional testing issuggested to confirm the result. Blood Venous blood specimen / Unknown 11/08/2023 10:37 AM EST 11/08/2023 11:36 AM EST us Dory Moreno MD LAB BLOOD ORDERABLES Fin al Result Performing Organization Address [facility] Co de Phone Number [facility] [address] [place] [phone] [phone] * Lipid Panel, Standard (11/08/2023 10:37 AM EST) Triglycerides 62 <150 mg/dL [facility] Comment:Desirable Triglyceri de: less than 150 mg/dLBorderline High Triglyceride 150-199 mg/dLHigh Triglyceride: 200-499 mg/dLVery High Triglyceride: greater than or equal to 5OO mg/dL Cholesterol 136 <200 mg/dL [facility] Comment:Desirable Cholestero l: less than 200 mg/dLBorderline High Cholesterol: 200-239 mg/dLHigh Cholesterol: greater than 239 mg/dL LDL Cholesterol Calculated 82 <100 mg/dL [facility] Comment:Desirable LDL: less than 100 mg/dLNear Optimal/Above Optimal LDL: 110- 129 mg/dLBorderline High LDL: 130-159 mg/dLHigh LDL: 160-189 mg/dLVery High LDL: greater than or equal to 190 mg/dL HDL Cholesterol 42 >40 mg/dL [facility] Comment:Desirable HDL: great er than 40 mg/dL Note: This HDL assay may give artificially low results in patients with liver disease. Blood Venous blood specimen / Unknown 11/08/2023 10:37 AM EST 11/08/2023 11:36 AM EST [facility] LAB BLOOD ORDERABLES Final Re [facility] Performing Organization Address City/State/[facility] Co de Phone Number [facility] [address] [place] [phone] from Last 3 Months or Most Recently Relevant to Health Maintenance Insurance [facility] C3 Care Teams Account Resolution Specialist Relationship Specialty Start Date End Date Jessie Rene FNP [address] [place] [phone] PCP - General Family Medicine 08/10/21
== END 2025-02-18 16:39 | disposition home or self-care (01) ==
PROVIDERS: Physician Assistant; Emergency Provider Emergency Medicine; PCP Registered Nurse
DX: J06.9 Acute upper respiratory infection, unspecified (principal); R06.02 Shortness of breath; R05.9 Cough, unspecified; Z03.818 Encounter for observation for suspected exposure to other biological agents ruled out
CPT/HCPCS: 0241U; 71046; 87651; 99283; 99284

== ENCOUNTER → 2025-02-18 13:42 | Outpatient (BNV) | payer MEDICAID, SELFPAY | PROVIDERS: Emergency Provider Emergency Medicine; PCP Registered Nurse; Visit Provider Radiology Diagnostic Radiology | DX: R05.9 Cough, unspecified (principal); R06.02 Shortness of breath | CPT/HCPCS: 71046 ==